=== PATIENT | male | born 1965 | race Caucasian/White ===

== ENCOUNTER 2016-03-28 21:17 | Inpatient (IN) | payer OTHER ==
[~2016-03-28] VITALS: Ht 198.1 cm; Wt 165.6 kg
[2016-03-28 21:20] VITALS: BP_SYST 126
[2016-03-28 22:06] LABS: BASOPHILS # (AUTO) 0.1 K/uL (0.0-0.2); EOSINOPHILS % (AUTO) 0.3 % (0.0-4.0); HEMATOCRIT 43.1 % (36-54); HEMOGLOBIN 14.5 g/dL (14.0-18.0); LYMPHOCYTES # (AUTO) 0.9 K/uL (1.0-5.5); LYMPHOCYTES % (AUTO) 5.9 % (20.5-51.5); MEAN CORPUSCULAR HEMOGLOBIN 29 pg (27-31); MEAN CORPUSCULAR HGB CONC 34 % (32-36); MEAN CORPUSCULAR VOLUME 87 fL (79.0-98.0); MONOCYTES # (AUTO) 0.6 K/uL (0.0-1.0); MONOCYTES % (AUTO) 4.1 % (1.7-9.3); NEUTROPHILS # (AUTO) 13.3 K/uL (1.8-7.7); NEUTROPHILS % (AUTO) 88.7 % (40.0-70.0); PLATELET COUNT (AUTO) 355 K/uL (130-430); RED BLOOD CELL COUNT(AUTO) 4.94 MIL/uL (4.2-6.2); RED CELL DISTRIBUTION WIDTH 11.5 % (9.0-15.0); WHITE BLOOD COUNT (AUTO) 14.9 K/uL (4.8-10.8)
[2016-03-28 22:18] LABS: CALCIUM 9.4 mg/dL (8.4-11.0); CREATININE 1.29 mg/dL (0.55-1.30); INR 1.2 (0.80-1.20); POTASSIUM 4.4 mmol/L (3.5-5.1); PROTHROMBIN TIME 12.5 SECS (9.5-12.5)
[2016-03-28 22:23] LABS: ALBUMIN 3.3 g/dL (3.4-4.8); TOTAL BILIRUBIN 1.5 mg/dL (0.0-1.0); TOTAL PROTEIN, SERUM 8.1 g/dL (6.4-8.3)
[2016-03-28] MEDS ORDERED: NACL 0.9% 1,000 ML IV ONE (22:23)
[2016-03-28] MEDS ORDERED: ONDANSETRON HCL 4 MG/2 ML VIAL IVP ONE (22:30)
[2016-03-28] MEDS ORDERED: IOHEXOL 100 ML IV ONE (23:09)
[2016-03-28] MEDS ORDERED: DIPHENHYDRAMINE INJ 50 MG/ML VIAL IVP ONE (23:45)
[2016-03-28] MEDS ORDERED: MORPHINE 4 MG/ML INJ. SYRINGE IVP ONE (23:45)
[2016-03-28 23:57] LABS: BILIRUBIN,URINE 2+ (NEGATIVE); BLOOD, URINE NEGATIVE (NEGATIVE); CLARITY/URINE SL HAZY (CLEAR); COLOR,URINE YELLOW (YELLOW); GLUCOSE,URINE NEGATIVE (NEGATIVE); KETONES,URINE 2+ (NEGATIVE); LEUKOCYTE ESTERASE ,URINE NEGATIVE (NEGATIVE); NITRITE, URINE POSITIVE (NEGATIVE); PH,URINE 5.5 (5.0-8.0); PROTEIN URINE 1+ (NEGATIVE)
[2016-03-29 00:13] LABS: BACTERIA,URINE MODERATE /HPF (None Seen); MUCUS,URINE 1+ /LPF (None Seen); RBC,URINE 0-3 /HPF (0-3)
[2016-03-29] MEDS ORDERED: MORPHINE 4 MG/ML INJ. SYRINGE IVP ONE ×2 (00:30)
[2016-03-29] MEDS ORDERED: NACL 0.9% 1,000 ML IV SCH (00:36)
[2016-03-29] MEDS ORDERED: PIPERACILLIN/TAZOBACTAM 3.375 GM/VIAL (ZOSYN) IV ONE (00:43)
[2016-03-29] MEDS ORDERED: MORPHINE 2 MG/ML INJ. SYRINGE IVP PRN (00:45)
[2016-03-29] MEDS ORDERED: ONDANSETRON HCL 4 MG/2 ML VIAL IVP PRN ×2 (00:45→03:30)
[2016-03-29] MEDS ORDERED: ACETAMINOPHEN 325 MG TABLET PO PRN (00:45)
[2016-03-29] MEDS ORDERED: HYDROcodone/ACETAMIN 5-325 MG TAB (NORCO/ VICODIN) PO PRN ×2 (00:45→04:30)
[2016-03-29] MEDS ORDERED: PIPERACILLIN/TAZO 3.375 GM in NS 50 ML IV ONE (00:45)
[2016-03-29] MEDS ORDERED: DIPHENHYDRAMINE INJ 50 MG/ML VIAL IVP ONE (01:00)
[2016-03-29] MEDS ORDERED: TYC3 PO (01:37)
[2016-03-29] MEDS ORDERED: LR 1,000 ML IV SCH (03:29)
[2016-03-29] MEDS ORDERED: HYDROmorphone 1 MG INJ. 1 MG/ML AMPUL IVP PRN ×2 (03:30)
[2016-03-29] MEDS ORDERED: HYDROmorphone 2 MG/ML VIAL IVP PRN (03:30)
[2016-03-29] MEDS ORDERED: POLYMYXIN 500,000/BACIT.10,000 UNITS in NS IRR 1 L IR ONE (03:44)
[2016-03-29 05:30] VITALS: BP_SYST 112
[2016-03-29 05:45] VITALS: BP_SYST 112
[2016-03-29] MEDS ORDERED: PIPERACILLIN/TAZO 3.375/DEX-IS 50 ML IV SCH (06:00)
[2016-03-29] MEDS ORDERED: AMPICILLIN SODIUM/SULBACTAM NA 3 GM in NS 100 ML IV SCH (06:00)
[2016-03-29] MEDS: D5/0.45 NS 1,000 ML IV SCH ×2 (06:10→17:01)
[2016-03-29 07:29] LABS: HEMATOCRIT 39.8 % (36-54); HEMOGLOBIN 13.5 g/dL (14.0-18.0)
[2016-03-29 08:00] VITALS: BP_SYST 138
[2016-03-29 08:12] LABS: CALCIUM 8.4 mg/dL (8.4-11.0); CREATININE 1.33 mg/dL (0.55-1.30); POTASSIUM 3.6 mmol/L (3.5-5.1)
[2016-03-29] MEDS ORDERED: AMPICILLIN SODIUM/SULBACTAM NA 3 GM in NS 100 ML IV ONE (08:15)
[2016-03-29] MEDS: FAMOTIDINE PF 20 MG/2 ML VIAL IVP SCH ×2 (08:47→20:04)
[2016-03-29] MEDS: ENOXAPARIN SODIUM 30 MG/0.3 ML SYRINGE SUBCUT SCH (08:47)
[2016-03-29 12:00] VITALS: BP_SYST 141
[2016-03-29] MEDS: HYDROmorphone 1 MG INJ. 1 MG/ML AMPUL IVP PRN ×3 (13:25→21:06)
[2016-03-29] MEDS: AMPICILLIN SODIUM/SULBACTAM NA 3 GM in NS 100 ML IV SCH ×3 (13:25→23:38)
[2016-03-29] MEDS ORDERED: NS 1000 ML BAG IV ONE (14:00)
[2016-03-29] MEDS ORDERED: METOCLOPRAMIDE HCL 10 MG/2 ML VIAL ONE (14:00)
[2016-03-29] MEDS ORDERED: KETOROLAC TROMETHAMINE 30 MG VIAL ONE (14:00)
[2016-03-29] MEDS ORDERED: ROCURONIUM BROMIDE 10 MG/ML (ZEMURON) ONE (14:00)
[2016-03-29] MEDS ORDERED: WATER FOR IRRIGATION,STERILE 1,000 ML IRRIG.SOLN IR ONE (14:00)
[2016-03-29] MEDS ORDERED: ONDANSETRON HCL 4 MG/2 ML VIAL ONE (14:00)
[2016-03-29] MEDS ORDERED: fentaNYL CITRATE 250 MCG/5 ML AMP ONE (14:00)
[2016-03-29] MEDS ORDERED: SEVOFLURANE 15 MIN GAS INH ONE (14:00)
[2016-03-29] MEDS ORDERED: PROPOFOL 200MG/ 20ML VIAL (DIPRIVAN) IV ONE (14:00)
[2016-03-29] MEDS ORDERED: MIDAZOLAM HCL 5 MG/5 ML VIAL ONE (14:00)
[2016-03-29] MEDS ORDERED: NS IRRIG SOLN 1000 ML IR ONE (14:00)
[2016-03-29] MEDS ORDERED: LR 1,000 ML IV.SOLN IV ONE (14:00)
[2016-03-29 16:00] VITALS: BP_SYST 119
[2016-03-29] MEDS: METOCLOPRAMIDE HCL 10 MG/2 ML VIAL IVP SCH ×2 (17:17→23:38)
[2016-03-29 20:00] VITALS: BP_SYST 130
[2016-03-30 01:11] VITALS: BP_SYST 119
[2016-03-30] MEDS: HYDROmorphone 1 MG INJ. 1 MG/ML AMPUL IVP PRN ×7 (01:22→23:23)
[2016-03-30] MEDS: D5/0.45 NS 1,000 ML IV SCH ×3 (05:03→20:18)
[2016-03-30 05:37] VITALS: BP_SYST 114
[2016-03-30] MEDS: AMPICILLIN SODIUM/SULBACTAM NA 3 GM in NS 100 ML IV SCH ×4 (06:23→23:24)
[2016-03-30] MEDS: METOCLOPRAMIDE HCL 10 MG/2 ML VIAL IVP SCH ×4 (06:23→23:24)
[2016-03-30 06:25] LABS: BASOPHILS % (AUTO) 0.1 % (0.0-2.0); HEMATOCRIT 35.9 % (36-54); HEMOGLOBIN 12.4 g/dL (14.0-18.0); LYMPHOCYTES # (AUTO) 0.8 K/uL (1.0-5.5); LYMPHOCYTES % (AUTO) 6.2 % (20.5-51.5); MEAN CORPUSCULAR HEMOGLOBIN 30 pg (27-31); MEAN CORPUSCULAR HGB CONC 35 % (32-36); MEAN CORPUSCULAR VOLUME 87 fL (79.0-98.0); MONOCYTES # (AUTO) 0.8 K/uL (0.0-1.0); MONOCYTES % (AUTO) 6.4 % (1.7-9.3); NEUTROPHILS # (AUTO) 10.6 K/uL (1.8-7.7); NEUTROPHILS % (AUTO) 87.3 % (40.0-70.0); PLATELET COUNT (AUTO) 275 K/uL (130-430); RED BLOOD CELL COUNT(AUTO) 4.15 MIL/uL (4.2-6.2); RED CELL DISTRIBUTION WIDTH 12.2 % (9.0-15.0); WHITE BLOOD COUNT (AUTO) 12.2 K/uL (4.8-10.8)
[2016-03-30 06:46] LABS: ALBUMIN 2.3 g/dL (3.4-4.8); CALCIUM 8.2 mg/dL (8.4-11.0); CREATININE 1.39 mg/dL (0.55-1.30); TOTAL BILIRUBIN 1.3 mg/dL (0.0-1.0); TOTAL PROTEIN, SERUM 6.6 g/dL (6.4-8.3)
[2016-03-30 08:00] VITALS: BP_SYST 119
[2016-03-30] MEDS: ENOXAPARIN SODIUM 30 MG/0.3 ML SYRINGE SUBCUT SCH (09:10)
[2016-03-30] MEDS: FAMOTIDINE PF 20 MG/2 ML VIAL IVP SCH ×2 (09:10→20:47)
[2016-03-30 11:23] VITALS: BP_SYST 124
[2016-03-30 15:24] VITALS: BP_SYST 151
[2016-03-30 19:45] VITALS: BP_SYST 101
[2016-03-31] VITALS: BP_SYST 129
[2016-03-31 04:00] VITALS: BP_SYST 118
[2016-03-31] MEDS: AMPICILLIN SODIUM/SULBACTAM NA 3 GM in NS 100 ML IV SCH ×4 (04:57→23:57)
[2016-03-31] MEDS: D5/0.45 NS 1,000 ML IV SCH ×2 (04:57→18:17)
[2016-03-31] MEDS: METOCLOPRAMIDE HCL 10 MG/2 ML VIAL IVP SCH ×4 (04:57→23:58)
[2016-03-31] MEDS: HYDROmorphone 1 MG INJ. 1 MG/ML AMPUL IVP PRN ×2 (06:45→15:49)
[2016-03-31 06:58] LABS: BASOPHILS % (AUTO) 0.1 % (0.0-2.0); EOSINOPHILS # (AUTO) 0.1 K/uL (0.0-0.4); EOSINOPHILS % (AUTO) 0.5 % (0.0-4.0); HEMATOCRIT 35.2 % (36-54); HEMOGLOBIN 12.1 g/dL (14.0-18.0); LYMPHOCYTES # (AUTO) 0.6 K/uL (1.0-5.5); MEAN CORPUSCULAR HEMOGLOBIN 30 pg (27-31); MEAN CORPUSCULAR HGB CONC 34 % (32-36); MEAN CORPUSCULAR VOLUME 88 fL (79.0-98.0); MONOCYTES # (AUTO) 0.7 K/uL (0.0-1.0); MONOCYTES % (AUTO) 4.7 % (1.7-9.3); NEUTROPHILS % (AUTO) 90.7 % (40.0-70.0); PLATELET COUNT (AUTO) 271 K/uL (130-430); WHITE BLOOD COUNT (AUTO) 14.4 K/uL (4.8-10.8)
[2016-03-31 07:09] LABS: ALBUMIN 2.1 g/dL (3.4-4.8); CALCIUM 8.1 mg/dL (8.4-11.0); CREATININE 1.44 mg/dL (0.55-1.30); POTASSIUM 3.6 mmol/L (3.5-5.1); TOTAL BILIRUBIN 1.4 mg/dL (0.0-1.0); TOTAL PROTEIN, SERUM 6.4 g/dL (6.4-8.3)
[2016-03-31 08:28] VITALS: BP_SYST 116
[2016-03-31] MEDS: ENOXAPARIN SODIUM 30 MG/0.3 ML SYRINGE SUBCUT SCH (10:22)
[2016-03-31] MEDS: FAMOTIDINE PF 20 MG/2 ML VIAL IVP SCH ×2 (10:59→21:02)
[2016-03-31] MEDS: metroNIDAZOLE 500 mg/NS 100 ML IV SCH ×2 (15:48→21:02)
[2016-03-31 16:15] VITALS: BP_SYST 140
[2016-03-31] MEDS: HYDROcodone/ACETAMIN 5-325 MG TAB (NORCO/ VICODIN) PO PRN (18:15)
[2016-03-31 19:50] VITALS: BP_SYST 113
[2016-03-31 23:44] VITALS: BP_SYST 106
[2016-04-01 03:59] VITALS: BP_SYST 118
[2016-04-01] MEDS: METOCLOPRAMIDE HCL 10 MG/2 ML VIAL IVP SCH ×3 (05:31→18:15)
[2016-04-01] MEDS: metroNIDAZOLE 500 mg/NS 100 ML IV SCH ×3 (05:33→21:11)
[2016-04-01] MEDS: AMPICILLIN SODIUM/SULBACTAM NA 3 GM in NS 100 ML IV SCH ×3 (05:33→17:58)
[2016-04-01] MEDS: HYDROcodone/ACETAMIN 5-325 MG TAB (NORCO/ VICODIN) PO PRN ×4 (05:33→23:21)
[2016-04-01] MEDS: D5/0.45 NS 1,000 ML IV SCH ×3 (05:34→22:18)
[2016-04-01 06:39] LABS: CALCIUM 8.3 mg/dL (8.4-11.0); CREATININE 1.21 mg/dL (0.55-1.30); POTASSIUM 3.2 mmol/L (3.5-5.1); TOTAL BILIRUBIN 1.2 mg/dL (0.0-1.0); TOTAL PROTEIN, SERUM 6.4 g/dL (6.4-8.3)
[2016-04-01 07:34] LABS: BASOPHILS % (AUTO) 0.2 % (0.0-2.0); EOSINOPHILS # (AUTO) 0.2 K/uL (0.0-0.4); EOSINOPHILS % (AUTO) 1.7 % (0.0-4.0); HEMATOCRIT 33.6 % (36-54); HEMOGLOBIN 11.4 g/dL (14.0-18.0); LYMPHOCYTES # (AUTO) 0.6 K/uL (1.0-5.5); LYMPHOCYTES % (AUTO) 5.6 % (20.5-51.5); MEAN CORPUSCULAR HEMOGLOBIN 30 pg (27-31); MEAN CORPUSCULAR HGB CONC 34 % (32-36); MEAN CORPUSCULAR VOLUME 88 fL (79.0-98.0); MONOCYTES # (AUTO) 0.6 K/uL (0.0-1.0); MONOCYTES % (AUTO) 5.4 % (1.7-9.3); NEUTROPHILS # (AUTO) 9.7 K/uL (1.8-7.7); NEUTROPHILS % (AUTO) 87.1 % (40.0-70.0); RED BLOOD CELL COUNT(AUTO) 3.81 MIL/uL (4.2-6.2); RED CELL DISTRIBUTION WIDTH 11.9 % (9.0-15.0); WHITE BLOOD COUNT (AUTO) 11.1 K/uL (4.8-10.8)
[2016-04-01 07:39] LABS: PLATELET COUNT (AUTO) 289 K/uL (130-430)
[2016-04-01 08:00] VITALS: BP_SYST 111
[2016-04-01] MEDS: ENOXAPARIN SODIUM 30 MG/0.3 ML SYRINGE SUBCUT SCH (10:21)
[2016-04-01] MEDS: FAMOTIDINE PF 20 MG/2 ML VIAL IVP SCH ×2 (10:21→21:29)
[2016-04-01] MEDS ORDERED: POTASSIUM CHLORIDE 40 MEQ, MAGNESIUM SULFATE 2 GM in 0.45% NS 250 ML IV ONE (10:30)
[2016-04-01] MEDS ORDERED: POTASSIUM CHLORIDE 40 MEQ, MAGNESIUM SULFATE 2 GM in NS 250 ML IV ONE (10:45)
[2016-04-01 11:09] VITALS: BP_SYST 124
[2016-04-01 17:24] VITALS: BP_SYST 123
[2016-04-01] MEDS: ONDANSETRON HCL 4 MG/2 ML VIAL IVP PRN (18:15)
[2016-04-01 20:06] VITALS: BP_SYST 127
[2016-04-02 00:54] VITALS: BP_SYST 124
[2016-04-02] MEDS: AMPICILLIN SODIUM/SULBACTAM NA 3 GM in NS 100 ML IV SCH ×4 (01:02→18:11)
[2016-04-02] MEDS: METOCLOPRAMIDE HCL 10 MG/2 ML VIAL IVP SCH ×4 (01:14→18:11)
[2016-04-02] MEDS: ONDANSETRON HCL 4 MG/2 ML VIAL IVP PRN ×3 (02:35→12:31)
[2016-04-02 04:30] VITALS: BP_SYST 118
[2016-04-02] MEDS: metroNIDAZOLE 500 mg/NS 100 ML IV SCH ×3 (05:11→22:28)
[2016-04-02 07:00] LABS: BASOPHILS % (AUTO) 0.1 % (0.0-2.0); EOSINOPHILS # (AUTO) 0.1 K/uL (0.0-0.4); EOSINOPHILS % (AUTO) 1.3 % (0.0-4.0); HEMOGLOBIN 11.1 g/dL (14.0-18.0); LYMPHOCYTES # (AUTO) 0.4 K/uL (1.0-5.5); LYMPHOCYTES % (AUTO) 3.8 % (20.5-51.5); MEAN CORPUSCULAR HEMOGLOBIN 31 pg (27-31); MEAN CORPUSCULAR HGB CONC 35 % (32-36); MEAN CORPUSCULAR VOLUME 88 fL (79.0-98.0); MONOCYTES # (AUTO) 0.7 K/uL (0.0-1.0); MONOCYTES % (AUTO) 5.9 % (1.7-9.3); NEUTROPHILS # (AUTO) 10.2 K/uL (1.8-7.7); NEUTROPHILS % (AUTO) 88.9 % (40.0-70.0); PLATELET COUNT (AUTO) 304 K/uL (130-430); RED BLOOD CELL COUNT(AUTO) 3.62 MIL/uL (4.2-6.2); RED CELL DISTRIBUTION WIDTH 12.1 % (9.0-15.0); WHITE BLOOD COUNT (AUTO) 11.4 K/uL (4.8-10.8)
[2016-04-02 07:29] LABS: CALCIUM 8.6 mg/dL (8.4-11.0); CREATININE 1.11 mg/dL (0.55-1.30); POTASSIUM 3.6 mmol/L (3.5-5.1); TOTAL BILIRUBIN 0.8 mg/dL (0.0-1.0); TOTAL PROTEIN, SERUM 6.3 g/dL (6.4-8.3)
[2016-04-02 08:00] VITALS: BP_SYST 123
[2016-04-02] MEDS: D5/0.45 NS 1,000 ML IV SCH (08:18)
[2016-04-02] MEDS: FAMOTIDINE PF 20 MG/2 ML VIAL IVP SCH ×2 (08:54→22:27)
[2016-04-02] MEDS: ENOXAPARIN SODIUM 30 MG/0.3 ML SYRINGE SUBCUT SCH (08:54)
[2016-04-02] MEDS: HYDROcodone/ACETAMIN 5-325 MG TAB (NORCO/ VICODIN) PO PRN (09:16)
[2016-04-02 12:00] VITALS: BP_SYST 136
[2016-04-02 16:00] VITALS: BP_SYST 118; BP_SYST 122
[2016-04-02 20:00] VITALS: BP_SYST 114
[2016-04-02] MEDS: HYDROmorphone 1 MG INJ. 1 MG/ML AMPUL IVP PRN (20:33)
[2016-04-03] VITALS (7 sets, daily range): BP systolic 109–138
[2016-04-03] MEDS: AMPICILLIN SODIUM/SULBACTAM NA 3 GM in NS 100 ML IV SCH ×5 (00:06→23:07)
[2016-04-03] MEDS: METOCLOPRAMIDE HCL 10 MG/2 ML VIAL IVP SCH ×5 (00:07→23:07)
[2016-04-03] MEDS: HYDROmorphone 1 MG INJ. 1 MG/ML AMPUL IVP PRN ×7 (00:08→19:43)
[2016-04-03] MEDS: D5/0.45 NS 1,000 ML IV SCH ×2 (05:40→15:45)
[2016-04-03] MEDS: metroNIDAZOLE 500 mg/NS 100 ML IV SCH ×3 (06:43→21:03)
[2016-04-03 06:48] LABS: BASOPHILS % (AUTO) 0.1 % (0.0-2.0); HEMATOCRIT 41.9 % (36-54); LYMPHOCYTES # (AUTO) 0.6 K/uL (1.0-5.5); LYMPHOCYTES % (AUTO) 3.1 % (20.5-51.5); MEAN CORPUSCULAR HEMOGLOBIN 29 pg (27-31); MEAN CORPUSCULAR HGB CONC 33 % (32-36); MEAN CORPUSCULAR VOLUME 88 fL (79.0-98.0); MONOCYTES # (AUTO) 0.8 K/uL (0.0-1.0); MONOCYTES % (AUTO) 4.3 % (1.7-9.3); NEUTROPHILS # (AUTO) 16.5 K/uL (1.8-7.7); NEUTROPHILS % (AUTO) 92.5 % (40.0-70.0); PLATELET COUNT (AUTO) 527 K/uL (130-430); RED BLOOD CELL COUNT(AUTO) 4.76 MIL/uL (4.2-6.2); RED CELL DISTRIBUTION WIDTH 12.3 % (9.0-15.0)
[2016-04-03 07:02] LABS: WHITE BLOOD COUNT (AUTO) 17.9 K/uL (4.8-10.8)
[2016-04-03 08:32] LABS: ALBUMIN 1.9 g/dL (3.4-4.8); CALCIUM 8.6 mg/dL (8.4-11.0); CREATININE 2.53 mg/dL (0.55-1.30); TOTAL BILIRUBIN 2.2 mg/dL (0.0-1.0); TOTAL PROTEIN, SERUM 6.5 g/dL (6.4-8.3)
[2016-04-03] MEDS: FAMOTIDINE PF 20 MG/2 ML VIAL IVP SCH ×2 (08:51→21:03)
[2016-04-03] MEDS: ENOXAPARIN SODIUM 30 MG/0.3 ML SYRINGE SUBCUT SCH (08:51)
[2016-04-03 11:45] LABS: INR 1.3 (0.80-1.20); PROTHROMBIN TIME 13.9 SECS (9.5-12.5)
[2016-04-03] MEDS ORDERED: COMMUNICATION ORDER XX ONE ×2 (17:00→17:15)
[2016-04-03] MEDS ORDERED: LR 1,000 ML IV ONE (17:15)
[2016-04-04] VITALS: BP_SYST 133
[2016-04-04] MEDS: HYDROmorphone 1 MG INJ. 1 MG/ML AMPUL IVP PRN ×6 (00:13→21:11)
[2016-04-04] MEDS: ONDANSETRON HCL 4 MG/2 ML VIAL IVP PRN ×2 (02:54→08:13)
[2016-04-04] MEDS: D5/0.45 NS 1,000 ML IV SCH ×2 (04:13→21:11)
[2016-04-04 04:22] VITALS: BP_SYST 126
[2016-04-04] MEDS: metroNIDAZOLE 500 mg/NS 100 ML IV SCH ×3 (05:06→21:11)
[2016-04-04] MEDS: METOCLOPRAMIDE HCL 10 MG/2 ML VIAL IVP SCH ×4 (05:06→23:25)
[2016-04-04] MEDS: AMPICILLIN SODIUM/SULBACTAM NA 3 GM in NS 100 ML IV SCH ×4 (05:06→23:25)
[2016-04-04 06:42] LABS: BASOPHILS # (AUTO) 0.1 K/uL (0.0-0.2); BASOPHILS % (AUTO) 0.5 % (0.0-2.0); HEMATOCRIT 33.7 % (36-54); HEMOGLOBIN 11.6 g/dL (14.0-18.0); LYMPHOCYTES # (AUTO) 0.4 K/uL (1.0-5.5); LYMPHOCYTES % (AUTO) 2.4 % (20.5-51.5); MEAN CORPUSCULAR HEMOGLOBIN 30 pg (27-31); MEAN CORPUSCULAR HGB CONC 34 % (32-36); MEAN CORPUSCULAR VOLUME 88 fL (79.0-98.0); MONOCYTES # (AUTO) 0.7 K/uL (0.0-1.0); MONOCYTES % (AUTO) 4.1 % (1.7-9.3); NEUTROPHILS # (AUTO) 14.7 K/uL (1.8-7.7); PLATELET COUNT (AUTO) 358 K/uL (130-430); RED BLOOD CELL COUNT(AUTO) 3.84 MIL/uL (4.2-6.2); RED CELL DISTRIBUTION WIDTH 12.4 % (9.0-15.0); WHITE BLOOD COUNT (AUTO) 15.9 K/uL (4.8-10.8)
[2016-04-04 06:58] LABS: ALBUMIN 1.7 g/dL (3.4-4.8); CALCIUM 8.3 mg/dL (8.4-11.0); CREATININE 2.58 mg/dL (0.55-1.30)
[2016-04-04] MEDS: FAMOTIDINE PF 20 MG/2 ML VIAL IVP SCH ×2 (08:14→21:11)
[2016-04-04] MEDS: ENOXAPARIN SODIUM 30 MG/0.3 ML SYRINGE SUBCUT SCH (08:14)
[2016-04-04] MEDS ORDERED: *TPN PER PHARMACY XX PRN (09:45)
[2016-04-04 10:49] LABS: PHOSPHORUS 4.2 mg/dL (2.7-4.5)
[2016-04-04] MEDS ORDERED: LR 1,000 ML IV ONE (11:00)
[2016-04-04 12:00] VITALS: BP_SYST 130
[2016-04-04] MEDS ORDERED: TPN CENTRAL IV SCH ×11 (15:30)
[2016-04-04] MEDS ORDERED: [UNRECOGNIZED DRUG - OTHER] IV SCH ×11 (15:30)
[2016-04-04] MEDS ORDERED: SODIUM ACETATE IV SCH ×11 (15:30)
[2016-04-04] MEDS ORDERED: POTASSIUM CHLORIDE IV SCH ×11 (15:30)
[2016-04-04] MEDS ORDERED: K PHOS IV SCH ×11 (15:30)
[2016-04-04 16:00] VITALS: BP_SYST 128
[2016-04-04] MEDS: FAT EMULSIONS 250 ML IV SCH (16:12)
[2016-04-04 20:00] VITALS: BP_SYST 132
[2016-04-04] MEDS: TEMAZEPAM 15 MG CAPSULE PO PRN (23:25)
[2016-04-05 01:13] VITALS: BP_SYST 153
[2016-04-05] MEDS: HYDROmorphone 1 MG INJ. 1 MG/ML AMPUL IVP PRN ×4 (03:34→20:03)
[2016-04-05 04:57] VITALS: BP_SYST 146
[2016-04-05] MEDS: D5/0.45 NS 1,000 ML IV SCH ×2 (06:00→20:03)
[2016-04-05] MEDS: METOCLOPRAMIDE HCL 10 MG/2 ML VIAL IVP SCH ×4 (06:00→23:15)
[2016-04-05] MEDS: metroNIDAZOLE 500 mg/NS 100 ML IV SCH ×3 (06:03→23:15)
[2016-04-05 06:32] LABS: LYMPHOCYTES # (AUTO) 0.4 K/uL (1.0-5.5); MONOCYTES # (AUTO) 0.6 K/uL (0.0-1.0)
[2016-04-05 06:39] LABS: ALBUMIN 1.6 g/dL (3.4-4.8); CALCIUM 8.1 mg/dL (8.4-11.0); CREATININE 1.52 mg/dL (0.55-1.30); POTASSIUM 3.5 mmol/L (3.5-5.1); TOTAL BILIRUBIN 0.7 mg/dL (0.0-1.0); TOTAL PROTEIN, SERUM 5.9 g/dL (6.4-8.3)
[2016-04-05 06:47] LABS: BASOPHILS # (AUTO) 0.1 K/uL (0.0-0.2); BASOPHILS % (AUTO) 0.6 % (0.0-2.0); EOSINOPHILS % (AUTO) 0.3 % (0.0-4.0); HEMATOCRIT 30.9 % (36-54); HEMOGLOBIN 10.4 g/dL (14.0-18.0); LYMPHOCYTES % (AUTO) 2.9 % (20.5-51.5); MEAN CORPUSCULAR HEMOGLOBIN 30 pg (27-31); MEAN CORPUSCULAR HGB CONC 34 % (32-36); MEAN CORPUSCULAR VOLUME 88 fL (79.0-98.0); MONOCYTES % (AUTO) 4.8 % (1.7-9.3); NEUTROPHILS # (AUTO) 11.2 K/uL (1.8-7.7); NEUTROPHILS % (AUTO) 91.4 % (40.0-70.0); PLATELET COUNT (AUTO) 314 K/uL (130-430); RED CELL DISTRIBUTION WIDTH 12.4 % (9.0-15.0); WHITE BLOOD COUNT (AUTO) 12.3 K/uL (4.8-10.8)
[2016-04-05 08:31] VITALS: BP_SYST 144
[2016-04-05] MEDS: ENOXAPARIN SODIUM 30 MG/0.3 ML SYRINGE SUBCUT SCH (09:17)
[2016-04-05] MEDS: FAMOTIDINE PF 20 MG/2 ML VIAL IVP SCH ×2 (09:17→20:02)
[2016-04-05 12:51] VITALS: BP_SYST 142
[2016-04-05] MEDS: SODIUM ACETATE IV SCH ×11 (13:51)
[2016-04-05] MEDS: POTASSIUM CHLORIDE IV SCH ×11 (13:51)
[2016-04-05] MEDS: TPN CENTRAL IV SCH ×11 (13:51)
[2016-04-05] MEDS: [UNRECOGNIZED DRUG - OTHER] IV SCH ×11 (13:51)
[2016-04-05] MEDS: K PHOS IV SCH ×11 (13:51)
[2016-04-05] MEDS: FAT EMULSIONS 250 ML IV SCH (18:02)
[2016-04-05 18:29] VITALS: BP_SYST 133
[2016-04-05 19:40] VITALS: BP_SYST 135
[2016-04-05] MEDS: ONDANSETRON HCL 4 MG/2 ML VIAL IVP PRN (20:02)
[2016-04-06] VITALS (8 sets, daily range): BP systolic 133–153
[2016-04-06] MEDS: HYDROmorphone 1 MG INJ. 1 MG/ML AMPUL IVP PRN ×5 (02:38→21:28)
[2016-04-06] MEDS: metroNIDAZOLE 500 mg/NS 100 ML IV SCH ×3 (05:17→21:28)
[2016-04-06] MEDS: METOCLOPRAMIDE HCL 10 MG/2 ML VIAL IVP SCH ×3 (05:17→18:42)
[2016-04-06] MEDS: D5/0.45 NS 1,000 ML IV SCH ×3 (05:20→22:18)
[2016-04-06] MEDS: TPN CENTRAL IV SCH ×22 (05:26→10:34)
[2016-04-06] MEDS: SODIUM ACETATE IV SCH ×22 (05:26→10:34)
[2016-04-06] MEDS: K PHOS IV SCH ×22 (05:26→10:34)
[2016-04-06] MEDS: POTASSIUM CHLORIDE IV SCH ×22 (05:26→10:34)
[2016-04-06] MEDS: [UNRECOGNIZED DRUG - OTHER] IV SCH ×22 (05:26→10:34)
[2016-04-06 06:39] LABS: BASOPHILS % (AUTO) 0.2 % (0.0-2.0); EOSINOPHILS # (AUTO) 0.1 K/uL (0.0-0.4); EOSINOPHILS % (AUTO) 1.1 % (0.0-4.0); HEMATOCRIT 31.6 % (36-54); HEMOGLOBIN 10.5 g/dL (14.0-18.0); LYMPHOCYTES # (AUTO) 0.5 K/uL (1.0-5.5); LYMPHOCYTES % (AUTO) 4.4 % (20.5-51.5); MEAN CORPUSCULAR HEMOGLOBIN 30 pg (27-31); MEAN CORPUSCULAR HGB CONC 33 % (32-36); MEAN CORPUSCULAR VOLUME 89 fL (79.0-98.0); MONOCYTES # (AUTO) 0.6 K/uL (0.0-1.0); MONOCYTES % (AUTO) 5.1 % (1.7-9.3); NEUTROPHILS # (AUTO) 10.3 K/uL (1.8-7.7); NEUTROPHILS % (AUTO) 89.2 % (40.0-70.0); PLATELET COUNT (AUTO) 295 K/uL (130-430); RED BLOOD CELL COUNT(AUTO) 3.57 MIL/uL (4.2-6.2); RED CELL DISTRIBUTION WIDTH 12.3 % (9.0-15.0); WHITE BLOOD COUNT (AUTO) 11.5 K/uL (4.8-10.8)
[2016-04-06 06:50] LABS: CALCIUM 8.1 mg/dL (8.4-11.0); CREATININE 1.17 mg/dL (0.55-1.30); PHOSPHORUS 2.8 mg/dL (2.7-4.5); POTASSIUM 3.5 mmol/L (3.5-5.1)
[2016-04-06] MEDS: ENOXAPARIN SODIUM 30 MG/0.3 ML SYRINGE SUBCUT SCH (08:27)
[2016-04-06] MEDS: FAMOTIDINE PF 20 MG/2 ML VIAL IVP SCH ×2 (08:27→21:28)
[2016-04-06] MEDS: FAT EMULSIONS 250 ML IV SCH (18:24)
[2016-04-06] MEDS: ONDANSETRON HCL 4 MG/2 ML VIAL IVP PRN (18:36)
[2016-04-06] MEDS ORDERED: SODIUM ACETATE IV SCH ×11 (23:00)
[2016-04-06] MEDS ORDERED: [UNRECOGNIZED DRUG - OTHER] IV SCH ×11 (23:00)
[2016-04-06] MEDS ORDERED: SODIUM CHLORIDE IV SCH ×11 (23:00)
[2016-04-06] MEDS ORDERED: TPN CENTRAL IV SCH ×11 (23:00)
[2016-04-07] MEDS: METOCLOPRAMIDE HCL 10 MG/2 ML VIAL IVP SCH ×3 (00:05→12:41)
[2016-04-07 00:40] VITALS: BP_SYST 142
[2016-04-07] MEDS: HYDROmorphone 1 MG INJ. 1 MG/ML AMPUL IVP PRN ×4 (04:00→20:01)
[2016-04-07] MEDS: ONDANSETRON HCL 4 MG/2 ML VIAL IVP PRN ×4 (04:10→20:08)
[2016-04-07 04:33] VITALS: BP_SYST 131
[2016-04-07] MEDS: D5/0.45 NS 1,000 ML IV SCH (06:31)
[2016-04-07 07:24] LABS: BASOPHILS # (AUTO) 0.1 K/uL (0.0-0.2); BASOPHILS % (AUTO) 0.4 % (0.0-2.0); EOSINOPHILS # (AUTO) 0.1 K/uL (0.0-0.4); EOSINOPHILS % (AUTO) 0.9 % (0.0-4.0); HEMATOCRIT 30.6 % (36-54); HEMOGLOBIN 10.5 g/dL (14.0-18.0); LYMPHOCYTES # (AUTO) 0.6 K/uL (1.0-5.5); MEAN CORPUSCULAR HEMOGLOBIN 30 pg (27-31); MEAN CORPUSCULAR HGB CONC 34 % (32-36); MEAN CORPUSCULAR VOLUME 88 fL (79.0-98.0); MONOCYTES # (AUTO) 0.9 K/uL (0.0-1.0); NEUTROPHILS # (AUTO) 12.7 K/uL (1.8-7.7); NEUTROPHILS % (AUTO) 88.7 % (40.0-70.0); PLATELET COUNT (AUTO) 303 K/uL (130-430); RED CELL DISTRIBUTION WIDTH 12.4 % (9.0-15.0); WHITE BLOOD COUNT (AUTO) 14.4 K/uL (4.8-10.8)
[2016-04-07 07:39] LABS: ALBUMIN 1.6 g/dL (3.4-4.8); CALCIUM 7.7 mg/dL (8.4-11.0); CREATININE 0.95 mg/dL (0.55-1.30); POTASSIUM 3.5 mmol/L (3.5-5.1); TOTAL BILIRUBIN 0.6 mg/dL (0.0-1.0); TOTAL PROTEIN, SERUM 5.7 g/dL (6.4-8.3)
[2016-04-07] MEDS: ENOXAPARIN SODIUM 30 MG/0.3 ML SYRINGE SUBCUT SCH (09:37)
[2016-04-07] MEDS: FAMOTIDINE PF 20 MG/2 ML VIAL IVP SCH ×2 (09:38→21:23)
[2016-04-07 10:00] VITALS: BP_SYST 140
[2016-04-07 11:26] VITALS: BP_SYST 132
[2016-04-07] MEDS: FAT EMULSIONS 250 ML IV SCH (15:26)
[2016-04-07] MEDS: [UNRECOGNIZED DRUG - OTHER] IV SCH ×11 (15:29)
[2016-04-07] MEDS: TPN CENTRAL IV SCH ×11 (15:29)
[2016-04-07] MEDS: SODIUM ACETATE IV SCH ×11 (15:29)
[2016-04-07] MEDS: SODIUM CHLORIDE IV SCH ×11 (15:29)
[2016-04-07 15:38] VITALS: BP_SYST 151
[2016-04-07] MEDS ORDERED: metroNIDAZOLE 500 mg/NS 100 ML IV ONE (22:00)
[2016-04-08] VITALS: BP_SYST 118
[2016-04-08] MEDS: METOCLOPRAMIDE HCL 10 MG/2 ML VIAL IVP SCH ×4 (00:29→18:51)
[2016-04-08] MEDS: HYDROmorphone 1 MG INJ. 1 MG/ML AMPUL IVP PRN ×5 (00:31→19:56)
[2016-04-08 04:00] VITALS: BP_SYST 144
[2016-04-08] MEDS: D5/0.45 NS 1,000 ML IV SCH ×3 (04:18→16:53)
[2016-04-08] MEDS: TPN CENTRAL IV SCH ×22 (06:48→18:54)
[2016-04-08] MEDS: SODIUM CHLORIDE IV SCH ×22 (06:48→18:54)
[2016-04-08] MEDS: SODIUM ACETATE IV SCH ×22 (06:48→18:54)
[2016-04-08] MEDS: [UNRECOGNIZED DRUG - OTHER] IV SCH ×22 (06:48→18:54)
[2016-04-08 06:55] LABS: ALBUMIN 1.4 g/dL (3.4-4.8); BASOPHILS # (AUTO) 0.1 K/uL (0.0-0.2); BASOPHILS % (AUTO) 0.7 % (0.0-2.0); CALCIUM 7.6 mg/dL (8.4-11.0); CREATININE 0.93 mg/dL (0.55-1.30); EOSINOPHILS # (AUTO) 0.2 K/uL (0.0-0.4); EOSINOPHILS % (AUTO) 1.6 % (0.0-4.0); HEMATOCRIT 27.9 % (36-54); HEMOGLOBIN 9.7 g/dL (14.0-18.0); LYMPHOCYTES # (AUTO) 0.7 K/uL (1.0-5.5); LYMPHOCYTES % (AUTO) 5.1 % (20.5-51.5); MEAN CORPUSCULAR HEMOGLOBIN 30 pg (27-31); MEAN CORPUSCULAR HGB CONC 35 % (32-36); MEAN CORPUSCULAR VOLUME 86 fL (79.0-98.0); MONOCYTES # (AUTO) 0.8 K/uL (0.0-1.0); MONOCYTES % (AUTO) 5.6 % (1.7-9.3); NEUTROPHILS # (AUTO) 12.4 K/uL (1.8-7.7); PHOSPHORUS 2.7 mg/dL (2.7-4.5); PLATELET COUNT (AUTO) 263 K/uL (130-430); POTASSIUM 3.2 mmol/L (3.5-5.1); RED BLOOD CELL COUNT(AUTO) 3.23 MIL/uL (4.2-6.2); RED CELL DISTRIBUTION WIDTH 11.9 % (9.0-15.0); TOTAL BILIRUBIN 0.5 mg/dL (0.0-1.0); TOTAL PROTEIN, SERUM 5.2 g/dL (6.4-8.3); WHITE BLOOD COUNT (AUTO) 14.3 K/uL (4.8-10.8)
[2016-04-08 08:00] VITALS: BP_SYST 126
[2016-04-08] MEDS ORDERED: KCL 20 mEq in 100 mL (PREMIX) 100 ML IV ONE (08:15)
[2016-04-08] MEDS ORDERED: metroNIDAZOLE 500 mg/NS 100 ML IV ONE (08:30)
[2016-04-08] MEDS: ENOXAPARIN SODIUM 30 MG/0.3 ML SYRINGE SUBCUT SCH (09:51)
[2016-04-08] MEDS: FAMOTIDINE PF 20 MG/2 ML VIAL IVP SCH ×2 (09:52→21:41)
[2016-04-08] MEDS: ONDANSETRON HCL 4 MG/2 ML VIAL IVP PRN ×3 (09:57→19:54)
[2016-04-08 13:04] VITALS: BP_SYST 119
[2016-04-08] MEDS: metroNIDAZOLE 500 mg/NS 100 ML IV SCH ×2 (14:58→21:40)
[2016-04-08 16:35] VITALS: BP_SYST 140
[2016-04-08] MEDS: FAT EMULSIONS 250 ML IV SCH (16:59)
[2016-04-09 00:56] VITALS: BP_SYST 129
[2016-04-09] MEDS: METOCLOPRAMIDE HCL 10 MG/2 ML VIAL IVP SCH ×5 (01:16→23:12)
[2016-04-09 04:00] VITALS: BP_SYST 139
[2016-04-09] MEDS: D5/0.45 NS 1,000 ML IV SCH ×3 (04:49→17:20)
[2016-04-09] MEDS: metroNIDAZOLE 500 mg/NS 100 ML IV SCH ×3 (05:25→22:57)
[2016-04-09] MEDS: HYDROmorphone 1 MG INJ. 1 MG/ML AMPUL IVP PRN ×7 (05:36→20:49)
[2016-04-09] MEDS: ONDANSETRON HCL 4 MG/2 ML VIAL IVP PRN ×3 (05:37→17:17)
[2016-04-09 06:44] LABS: BASOPHILS % (AUTO) 0.2 % (0.0-2.0); EOSINOPHILS # (AUTO) 0.2 K/uL (0.0-0.4); EOSINOPHILS % (AUTO) 1.4 % (0.0-4.0); HEMATOCRIT 28.8 % (36-54); HEMOGLOBIN 9.8 g/dL (14.0-18.0); LYMPHOCYTES # (AUTO) 0.6 K/uL (1.0-5.5); LYMPHOCYTES % (AUTO) 5.2 % (20.5-51.5); MEAN CORPUSCULAR HEMOGLOBIN 30 pg (27-31); MEAN CORPUSCULAR HGB CONC 34 % (32-36); MEAN CORPUSCULAR VOLUME 87 fL (79.0-98.0); MONOCYTES # (AUTO) 0.7 K/uL (0.0-1.0); MONOCYTES % (AUTO) 6.1 % (1.7-9.3); NEUTROPHILS # (AUTO) 10.3 K/uL (1.8-7.7); NEUTROPHILS % (AUTO) 87.1 % (40.0-70.0); PLATELET COUNT (AUTO) 290 K/uL (130-430); RED BLOOD CELL COUNT(AUTO) 3.31 MIL/uL (4.2-6.2); RED CELL DISTRIBUTION WIDTH 12.1 % (9.0-15.0); WHITE BLOOD COUNT (AUTO) 11.8 K/uL (4.8-10.8)
[2016-04-09] MEDS: [UNRECOGNIZED DRUG - OTHER] IV SCH ×22 (06:53→10:24)
[2016-04-09] MEDS: SODIUM CHLORIDE IV SCH ×33 (06:53→23:32)
[2016-04-09] MEDS: TPN CENTRAL IV SCH ×33 (06:53→23:32)
[2016-04-09] MEDS: SODIUM ACETATE IV SCH ×33 (06:53→23:32)
[2016-04-09 07:05] LABS: ALBUMIN 1.4 g/dL (3.4-4.8); CALCIUM 7.6 mg/dL (8.4-11.0); CREATININE 0.92 mg/dL (0.55-1.30); POTASSIUM 3.2 mmol/L (3.5-5.1); TOTAL BILIRUBIN 0.4 mg/dL (0.0-1.0); TOTAL PROTEIN, SERUM 5.5 g/dL (6.4-8.3)
[2016-04-09 08:02] VITALS: BP_SYST 132
[2016-04-09] MEDS: FAMOTIDINE PF 20 MG/2 ML VIAL IVP SCH ×2 (08:24→20:46)
[2016-04-09] MEDS: ENOXAPARIN SODIUM 30 MG/0.3 ML SYRINGE SUBCUT SCH (08:24)
[2016-04-09 12:05] VITALS: BP_SYST 137
[2016-04-09] MEDS ORDERED: DIATR MEGLU/DIATRIZ SOD 30 ML SOLUTION PO ONE ×2 (14:31→15:20)
[2016-04-09 16:10] VITALS: BP_SYST 136
[2016-04-09] MEDS: FAT EMULSIONS 250 ML IV SCH (17:19)
[2016-04-09 20:21] VITALS: BP_SYST 140
[2016-04-09] MEDS: [UNRECOGNIZED DRUG - OTHER] IV SCH ×11 (23:32)
[2016-04-10] VITALS: BP_SYST 122
[2016-04-10] MEDS: HYDROmorphone 1 MG INJ. 1 MG/ML AMPUL IVP PRN ×7 (01:22→20:55)
[2016-04-10 04:27] VITALS: BP_SYST 126
[2016-04-10] MEDS: METOCLOPRAMIDE HCL 10 MG/2 ML VIAL IVP SCH ×3 (05:09→17:32)
[2016-04-10] MEDS: metroNIDAZOLE 500 mg/NS 100 ML IV SCH ×3 (05:09→22:48)
[2016-04-10] MEDS: D5/0.45 NS 1,000 ML IV SCH ×2 (05:11→08:20)
[2016-04-10 06:48] LABS: BASOPHILS % (AUTO) 0.2 % (0.0-2.0); EOSINOPHILS # (AUTO) 0.2 K/uL (0.0-0.4); EOSINOPHILS % (AUTO) 1.8 % (0.0-4.0); HEMATOCRIT 27.9 % (36-54); HEMOGLOBIN 9.5 g/dL (14.0-18.0); LYMPHOCYTES # (AUTO) 0.7 K/uL (1.0-5.5); LYMPHOCYTES % (AUTO) 5.8 % (20.5-51.5); MEAN CORPUSCULAR HEMOGLOBIN 30 pg (27-31); MEAN CORPUSCULAR HGB CONC 34 % (32-36); MEAN CORPUSCULAR VOLUME 87 fL (79.0-98.0); MONOCYTES # (AUTO) 0.7 K/uL (0.0-1.0); MONOCYTES % (AUTO) 6.5 % (1.7-9.3); NEUTROPHILS # (AUTO) 9.9 K/uL (1.8-7.7); NEUTROPHILS % (AUTO) 85.7 % (40.0-70.0); PLATELET COUNT (AUTO) 316 K/uL (130-430); RED BLOOD CELL COUNT(AUTO) 3.21 MIL/uL (4.2-6.2); RED CELL DISTRIBUTION WIDTH 12.2 % (9.0-15.0); WHITE BLOOD COUNT (AUTO) 11.5 K/uL (4.8-10.8)
[2016-04-10 06:58] LABS: ALBUMIN 1.5 g/dL (3.4-4.8); CALCIUM 7.6 mg/dL (8.4-11.0); CREATININE 0.87 mg/dL (0.55-1.30); PHOSPHORUS 3.1 mg/dL (2.7-4.5); POTASSIUM 3.4 mmol/L (3.5-5.1); TOTAL BILIRUBIN 0.4 mg/dL (0.0-1.0); TOTAL PROTEIN, SERUM 5.4 g/dL (6.4-8.3)
[2016-04-10 08:00] VITALS: BP_SYST 130
[2016-04-10] MEDS: FAMOTIDINE PF 20 MG/2 ML VIAL IVP SCH ×2 (08:20→20:56)
[2016-04-10] MEDS: ENOXAPARIN SODIUM 30 MG/0.3 ML SYRINGE SUBCUT SCH (08:21)
[2016-04-10] MEDS ORDERED: DIATR MEGLU/DIATRIZ SOD 30 ML SOLUTION PO ONE (10:17)
[2016-04-10] MEDS: ONDANSETRON HCL 4 MG/2 ML VIAL IVP PRN ×2 (10:27→20:56)
[2016-04-10 12:40] VITALS: BP_SYST 135
[2016-04-10] MEDS: TPN CENTRAL IV SCH ×11 (13:23)
[2016-04-10] MEDS: SODIUM ACETATE IV SCH ×11 (13:23)
[2016-04-10] MEDS: SODIUM CHLORIDE IV SCH ×11 (13:23)
[2016-04-10] MEDS: [UNRECOGNIZED DRUG - OTHER] IV SCH ×11 (13:23)
[2016-04-10 16:00] VITALS: BP_SYST 120
[2016-04-10] MEDS: FAT EMULSIONS 250 ML IV SCH (17:32)
[2016-04-10 19:50] VITALS: BP_SYST 139
[2016-04-11] MEDS: METOCLOPRAMIDE HCL 10 MG/2 ML VIAL IVP SCH ×4 (00:49→17:49)
[2016-04-11 01:20] VITALS: BP_SYST 130
[2016-04-11] MEDS: D5/0.45 NS 1,000 ML IV SCH (01:33)
[2016-04-11] MEDS: HYDROmorphone 1 MG INJ. 1 MG/ML AMPUL IVP PRN ×7 (01:39→22:02)
[2016-04-11] MEDS: ONDANSETRON HCL 4 MG/2 ML VIAL IVP PRN ×3 (01:39→20:42)
[2016-04-11] MEDS: TPN CENTRAL IV SCH ×22 (03:37→18:05)
[2016-04-11] MEDS: SODIUM CHLORIDE IV SCH ×22 (03:37→18:05)
[2016-04-11] MEDS: SODIUM ACETATE IV SCH ×22 (03:37→18:05)
[2016-04-11] MEDS: [UNRECOGNIZED DRUG - OTHER] IV SCH ×22 (03:37→18:05)
[2016-04-11 04:10] VITALS: BP_SYST 122
[2016-04-11] MEDS: metroNIDAZOLE 500 mg/NS 100 ML IV SCH ×3 (05:24→22:08)
[2016-04-11 06:47] LABS: BASOPHILS % (AUTO) 0.1 % (0.0-2.0); EOSINOPHILS # (AUTO) 0.1 K/uL (0.0-0.4); HEMATOCRIT 28.2 % (36-54); HEMOGLOBIN 9.4 g/dL (14.0-18.0); LYMPHOCYTES # (AUTO) 0.6 K/uL (1.0-5.5); MEAN CORPUSCULAR HEMOGLOBIN 29 pg (27-31); MEAN CORPUSCULAR HGB CONC 33 % (32-36); MEAN CORPUSCULAR VOLUME 86 fL (79.0-98.0); MONOCYTES # (AUTO) 0.6 K/uL (0.0-1.0); MONOCYTES % (AUTO) 5.6 % (1.7-9.3); NEUTROPHILS # (AUTO) 10.2 K/uL (1.8-7.7); NEUTROPHILS % (AUTO) 88.3 % (40.0-70.0); PLATELET COUNT (AUTO) 323 K/uL (130-430); RED BLOOD CELL COUNT(AUTO) 3.28 MIL/uL (4.2-6.2); RED CELL DISTRIBUTION WIDTH 12.2 % (9.0-15.0); WHITE BLOOD COUNT (AUTO) 11.5 K/uL (4.8-10.8)
[2016-04-11 07:18] LABS: ALBUMIN 1.5 g/dL (3.4-4.8); CALCIUM 7.9 mg/dL (8.4-11.0); CREATININE 0.92 mg/dL (0.55-1.30); POTASSIUM 3.5 mmol/L (3.5-5.1); TOTAL BILIRUBIN 0.4 mg/dL (0.0-1.0); TOTAL PROTEIN, SERUM 5.8 g/dL (6.4-8.3)
[2016-04-11 08:00] VITALS: BP_SYST 126
[2016-04-11] MEDS ORDERED: POTASSIUM CHLORIDE 40 MEQ in NS 250 ML IV ONE (09:15)
[2016-04-11] MEDS ORDERED: FUROSEMIDE 20 MG/2 ML VIAL IVP ONE (09:15)
[2016-04-11] MEDS: ENOXAPARIN SODIUM 30 MG/0.3 ML SYRINGE SUBCUT SCH (09:19)
[2016-04-11] MEDS: FAMOTIDINE PF 20 MG/2 ML VIAL IVP SCH ×2 (11:42→22:01)
[2016-04-11] MEDS: AMPICILLIN SODIUM/SULBACTAM NA 3 GM in NS 100 ML IV SCH ×2 (11:42→17:50)
[2016-04-11 12:00] VITALS: BP_SYST 132
[2016-04-11] MEDS ORDERED: HYDROmorphone 1 MG INJ. 1 MG/ML AMPUL IVP ONE (13:30)
[2016-04-11 16:00] VITALS: BP_SYST 135
[2016-04-11] MEDS: FAT EMULSIONS 250 ML IV SCH (16:52)
[2016-04-11 19:25] VITALS: BP_SYST 134
[2016-04-11] MEDS: LACTOBACILLUS RHAMNOSUS GG 1 CAP CAPSULE PO SCH (21:58)
[2016-04-12] VITALS: BP_SYST 160
[2016-04-12] MEDS: AMPICILLIN SODIUM/SULBACTAM NA 3 GM in NS 100 ML IV SCH ×4 (00:30→17:29)
[2016-04-12] MEDS: METOCLOPRAMIDE HCL 10 MG/2 ML VIAL IVP SCH ×4 (00:30→17:29)
[2016-04-12] MEDS: HYDROmorphone 1 MG INJ. 1 MG/ML AMPUL IVP PRN ×7 (00:46→21:28)
[2016-04-12 05:08] VITALS: BP_SYST 149
[2016-04-12] MEDS: TPN CENTRAL IV SCH ×22 (06:02→21:43)
[2016-04-12] MEDS: [UNRECOGNIZED DRUG - OTHER] IV SCH ×22 (06:02→21:43)
[2016-04-12] MEDS: SODIUM ACETATE IV SCH ×22 (06:02→21:43)
[2016-04-12] MEDS: SODIUM CHLORIDE IV SCH ×22 (06:02→21:43)
[2016-04-12] MEDS: metroNIDAZOLE 500 mg/NS 100 ML IV SCH ×3 (06:03→23:13)
[2016-04-12 06:34] LABS: CALCIUM 7.8 mg/dL (8.4-11.0); CREATININE 0.94 mg/dL (0.55-1.30); POTASSIUM 3.8 mmol/L (3.5-5.1)
[2016-04-12 07:05] LABS: BASOPHILS % (AUTO) 0.2 % (0.0-2.0); EOSINOPHILS # (AUTO) 0.2 K/uL (0.0-0.4); EOSINOPHILS % (AUTO) 1.6 % (0.0-4.0); HEMOGLOBIN 8.9 g/dL (14.0-18.0); LYMPHOCYTES # (AUTO) 0.6 K/uL (1.0-5.5); LYMPHOCYTES % (AUTO) 5.8 % (20.5-51.5); MEAN CORPUSCULAR HEMOGLOBIN 29 pg (27-31); MEAN CORPUSCULAR HGB CONC 33 % (32-36); MEAN CORPUSCULAR VOLUME 86 fL (79.0-98.0); MONOCYTES # (AUTO) 0.6 K/uL (0.0-1.0); MONOCYTES % (AUTO) 5.7 % (1.7-9.3); NEUTROPHILS # (AUTO) 9.1 K/uL (1.8-7.7); NEUTROPHILS % (AUTO) 86.7 % (40.0-70.0); PLATELET COUNT (AUTO) 318 K/uL (130-430); RED BLOOD CELL COUNT(AUTO) 3.13 MIL/uL (4.2-6.2); RED CELL DISTRIBUTION WIDTH 12.3 % (9.0-15.0); WHITE BLOOD COUNT (AUTO) 10.5 K/uL (4.8-10.8)
[2016-04-12 08:00] VITALS: BP_SYST 162
[2016-04-12] MEDS ORDERED: POTASSIUM CHLORIDE 40 MEQ, MAGNESIUM SULFATE 4 GM in 0.45% NS 250 ML IV ONE (08:30)
[2016-04-12] MEDS ORDERED: FUROSEMIDE 40 MG/4 ML VIAL IVP ONE (08:30)
[2016-04-12] MEDS: ENOXAPARIN SODIUM 30 MG/0.3 ML SYRINGE SUBCUT SCH (08:58)
[2016-04-12] MEDS: FAMOTIDINE PF 20 MG/2 ML VIAL IVP SCH ×2 (09:00→21:29)
[2016-04-12] MEDS: LACTOBACILLUS RHAMNOSUS GG 1 CAP CAPSULE PO SCH ×2 (09:00→21:29)
[2016-04-12] MEDS ORDERED: LIDOCAINE 1%, 20 ML MDV 0 ML ONE (11:21)
[2016-04-12 12:00] VITALS: BP_SYST 133
[2016-04-12] MEDS: FAT EMULSIONS 250 ML IV SCH (15:30)
[2016-04-12 16:00] VITALS: BP_SYST 140
[2016-04-12] MEDS ORDERED: COMMUNICATION ORDER XX SCH (18:30)
[2016-04-12 19:47] VITALS: BP_SYST 142
[2016-04-12] MEDS: TEMAZEPAM 15 MG CAPSULE PO PRN (23:17)
[2016-04-13] MEDS: METOCLOPRAMIDE HCL 10 MG/2 ML VIAL IVP SCH ×4 (00:25→18:28)
[2016-04-13] MEDS: AMPICILLIN SODIUM/SULBACTAM NA 3 GM in NS 100 ML IV SCH ×4 (00:26→18:29)
[2016-04-13] MEDS: FAT EMULSIONS 250 ML IV SCH (00:27)
[2016-04-13 01:00] VITALS: BP_SYST 137
[2016-04-13] MEDS: HYDROmorphone 1 MG INJ. 1 MG/ML AMPUL IVP PRN ×9 (02:03→21:47)
[2016-04-13 04:00] VITALS: BP_SYST 129
[2016-04-13] MEDS: TPN CENTRAL IV SCH ×22 (05:44→12:29)
[2016-04-13] MEDS: [UNRECOGNIZED DRUG - OTHER] IV SCH ×22 (05:44→12:29)
[2016-04-13] MEDS: SODIUM ACETATE IV SCH ×22 (05:44→12:29)
[2016-04-13] MEDS: SODIUM CHLORIDE IV SCH ×22 (05:44→12:29)
[2016-04-13] MEDS: metroNIDAZOLE 500 mg/NS 100 ML IV SCH ×3 (06:22→21:49)
[2016-04-13 07:04] LABS: CALCIUM 7.9 mg/dL (8.4-11.0); CREATININE 0.91 mg/dL (0.55-1.30); POTASSIUM 4.2 mmol/L (3.5-5.1)
[2016-04-13 07:14] LABS: BASOPHILS % (AUTO) 0.2 % (0.0-2.0); EOSINOPHILS # (AUTO) 0.2 K/uL (0.0-0.4); EOSINOPHILS % (AUTO) 2.4 % (0.0-4.0); HEMATOCRIT 27.1 % (36-54); HEMOGLOBIN 9.1 g/dL (14.0-18.0); LYMPHOCYTES # (AUTO) 0.6 K/uL (1.0-5.5); LYMPHOCYTES % (AUTO) 8.2 % (20.5-51.5); MEAN CORPUSCULAR HEMOGLOBIN 29 pg (27-31); MEAN CORPUSCULAR HGB CONC 34 % (32-36); MEAN CORPUSCULAR VOLUME 86 fL (79.0-98.0); MONOCYTES # (AUTO) 0.4 K/uL (0.0-1.0); MONOCYTES % (AUTO) 5.3 % (1.7-9.3); NEUTROPHILS # (AUTO) 6.4 K/uL (1.8-7.7); PLATELET COUNT (AUTO) 336 K/uL (130-430); RED BLOOD CELL COUNT(AUTO) 3.15 MIL/uL (4.2-6.2); RED CELL DISTRIBUTION WIDTH 12.5 % (9.0-15.0); WHITE BLOOD COUNT (AUTO) 7.6 K/uL (4.8-10.8)
[2016-04-13 07:15] LABS: ALBUMIN 1.6 g/dL (3.4-4.8); PHOSPHORUS 3.7 mg/dL (2.7-4.5); TOTAL BILIRUBIN 0.4 mg/dL (0.0-1.0); TOTAL PROTEIN, SERUM 5.8 g/dL (6.4-8.3)
[2016-04-13 08:05] VITALS: BP_SYST 132
[2016-04-13] MEDS: LACTOBACILLUS RHAMNOSUS GG 1 CAP CAPSULE PO SCH ×2 (10:15→20:15)
[2016-04-13] MEDS: ONDANSETRON HCL 4 MG/2 ML VIAL IVP PRN (10:15)
[2016-04-13] MEDS: ENOXAPARIN SODIUM 30 MG/0.3 ML SYRINGE SUBCUT SCH (10:23)
[2016-04-13] MEDS: FAMOTIDINE PF 20 MG/2 ML VIAL IVP SCH ×2 (10:33→20:48)
[2016-04-13 12:00] VITALS: BP_SYST 135
[2016-04-13 12:19] LABS: NEUTROPHILS % (AUTO) 83.9 % (40.0-70.0)
[2016-04-13 16:00] VITALS: BP_SYST 131
[2016-04-13 19:00] VITALS: BP_SYST 134
[2016-04-14] VITALS: BP_SYST 127
[2016-04-14] MEDS: METOCLOPRAMIDE HCL 10 MG/2 ML VIAL IVP SCH ×5 (00:40→23:39)
[2016-04-14] MEDS: AMPICILLIN SODIUM/SULBACTAM NA 3 GM in NS 100 ML IV SCH ×5 (00:41→23:39)
[2016-04-14] MEDS: HYDROmorphone 1 MG INJ. 1 MG/ML AMPUL IVP PRN ×11 (00:42→23:47)
[2016-04-14] MEDS: SODIUM CHLORIDE IV SCH ×44 (00:47→23:50)
[2016-04-14] MEDS: SODIUM ACETATE IV SCH ×44 (00:47→23:50)
[2016-04-14] MEDS: TPN CENTRAL IV SCH ×44 (00:47→23:50)
[2016-04-14] MEDS: [UNRECOGNIZED DRUG - OTHER] IV SCH ×44 (00:47→23:50)
[2016-04-14 04:00] VITALS: BP_SYST 142
[2016-04-14] MEDS: metroNIDAZOLE 500 mg/NS 100 ML IV SCH ×3 (05:22→21:20)
[2016-04-14 09:25] VITALS: BP_SYST 125
[2016-04-14] MEDS: ENOXAPARIN SODIUM 30 MG/0.3 ML SYRINGE SUBCUT SCH (09:34)
[2016-04-14] MEDS: FAMOTIDINE PF 20 MG/2 ML VIAL IVP SCH ×2 (09:34→20:05)
[2016-04-14] MEDS: LACTOBACILLUS RHAMNOSUS GG 1 CAP CAPSULE PO SCH ×2 (09:34→20:05)
[2016-04-14 12:14] VITALS: BP_SYST 132
[2016-04-14] MEDS: ONDANSETRON HCL 4 MG/2 ML VIAL IVP PRN (12:40)
[2016-04-14 16:22] VITALS: BP_SYST 130
[2016-04-14] MEDS: FAT EMULSIONS 250 ML IV SCH (17:52)
[2016-04-14 19:08] VITALS: BP_SYST 132
[2016-04-15] VITALS: BP_SYST 123
[2016-04-15] MEDS: HYDROmorphone 1 MG INJ. 1 MG/ML AMPUL IVP PRN ×11 (02:58→22:55)
[2016-04-15 04:19] VITALS: BP_SYST 122
[2016-04-15] MEDS: AMPICILLIN SODIUM/SULBACTAM NA 3 GM in NS 100 ML IV SCH ×2 (05:22→11:28)
[2016-04-15] MEDS: metroNIDAZOLE 500 mg/NS 100 ML IV SCH ×3 (05:22→22:48)
[2016-04-15] MEDS: METOCLOPRAMIDE HCL 10 MG/2 ML VIAL IVP SCH ×3 (05:23→17:16)
[2016-04-15 07:00] LABS: ALBUMIN 1.7 g/dL (3.4-4.8); CALCIUM 8.1 mg/dL (8.4-11.0); CREATININE 0.86 mg/dL (0.55-1.30); TOTAL BILIRUBIN 0.4 mg/dL (0.0-1.0); TOTAL PROTEIN, SERUM 6.1 g/dL (6.4-8.3)
[2016-04-15 07:42] LABS: BASOPHILS % (AUTO) 0.3 % (0.0-2.0); EOSINOPHILS # (AUTO) 0.2 K/uL (0.0-0.4); EOSINOPHILS % (AUTO) 2.9 % (0.0-4.0); HEMATOCRIT 27.9 % (36-54); HEMOGLOBIN 9.3 g/dL (14.0-18.0); LYMPHOCYTES # (AUTO) 0.6 K/uL (1.0-5.5); LYMPHOCYTES % (AUTO) 9.1 % (20.5-51.5); MEAN CORPUSCULAR HEMOGLOBIN 29 pg (27-31); MEAN CORPUSCULAR HGB CONC 34 % (32-36); MEAN CORPUSCULAR VOLUME 86 fL (79.0-98.0); MONOCYTES # (AUTO) 0.4 K/uL (0.0-1.0); MONOCYTES % (AUTO) 5.8 % (1.7-9.3); NEUTROPHILS # (AUTO) 5.9 K/uL (1.8-7.7); NEUTROPHILS % (AUTO) 81.9 % (40.0-70.0); PLATELET COUNT (AUTO) 309 K/uL (130-430); RED BLOOD CELL COUNT(AUTO) 3.25 MIL/uL (4.2-6.2); RED CELL DISTRIBUTION WIDTH 12.2 % (9.0-15.0); WHITE BLOOD COUNT (AUTO) 7.1 K/uL (4.8-10.8)
[2016-04-15 09:15] VITALS: BP_SYST 116
[2016-04-15] MEDS: ENOXAPARIN SODIUM 30 MG/0.3 ML SYRINGE SUBCUT SCH (09:26)
[2016-04-15] MEDS: LACTOBACILLUS RHAMNOSUS GG 1 CAP CAPSULE PO SCH ×2 (09:26→20:26)
[2016-04-15] MEDS: FAMOTIDINE PF 20 MG/2 ML VIAL IVP SCH ×2 (09:43→20:27)
[2016-04-15] MEDS: ONDANSETRON HCL 4 MG/2 ML VIAL IVP PRN ×2 (09:48→15:06)
[2016-04-15 11:48] VITALS: BP_SYST 139
[2016-04-15] MEDS: SODIUM CHLORIDE IV SCH ×11 (11:57)
[2016-04-15] MEDS: TPN CENTRAL IV SCH ×11 (11:57)
[2016-04-15] MEDS: SODIUM ACETATE IV SCH ×11 (11:57)
[2016-04-15] MEDS: [UNRECOGNIZED DRUG - OTHER] IV SCH ×11 (11:57)
[2016-04-15] MEDS ORDERED: COMMUNICATION ORDER XX ONE (14:30)
[2016-04-15 15:30] VITALS: BP_SYST 132
[2016-04-15] MEDS: PIPERACILLIN/TAZOBACTAM 3.375 GM/ D5W 50 ML IV SCH ×4 (15:53→17:26)
[2016-04-15] MEDS: FAT EMULSIONS 250 ML IV SCH (17:20)
[2016-04-15 20:09] VITALS: BP_SYST 134
[2016-04-16] VITALS: BP_SYST 130
[2016-04-16] MEDS: PIPERACILLIN/TAZOBACTAM 3.375 GM/ D5W 50 ML IV SCH ×8 (00:21→18:00)
[2016-04-16] MEDS: METOCLOPRAMIDE HCL 10 MG/2 ML VIAL IVP SCH ×4 (00:22→18:00)
[2016-04-16] MEDS: TPN CENTRAL IV SCH ×32 (00:23→20:53)
[2016-04-16] MEDS: SODIUM CHLORIDE IV SCH ×32 (00:23→20:53)
[2016-04-16] MEDS: SODIUM ACETATE IV SCH ×22 (00:23→09:40)
[2016-04-16] MEDS: [UNRECOGNIZED DRUG - OTHER] IV SCH ×22 (00:23→09:40)
[2016-04-16] MEDS: HYDROmorphone 1 MG INJ. 1 MG/ML AMPUL IVP PRN ×9 (00:33→22:25)
[2016-04-16 04:00] VITALS: BP_SYST 127
[2016-04-16 06:53] LABS: CREATININE 0.88 mg/dL (0.55-1.30); PHOSPHORUS 4.2 mg/dL (2.7-4.5); POTASSIUM 4.1 mmol/L (3.5-5.1)
[2016-04-16] MEDS: metroNIDAZOLE 500 mg/NS 100 ML IV SCH (06:55)
[2016-04-16 06:56] LABS: BASOPHILS % (AUTO) 0.3 % (0.0-2.0); EOSINOPHILS # (AUTO) 0.2 K/uL (0.0-0.4); EOSINOPHILS % (AUTO) 3.8 % (0.0-4.0); LYMPHOCYTES # (AUTO) 0.8 K/uL (1.0-5.5); LYMPHOCYTES % (AUTO) 14.5 % (20.5-51.5); MEAN CORPUSCULAR HEMOGLOBIN 29 pg (27-31); MEAN CORPUSCULAR HGB CONC 33 % (32-36); MEAN CORPUSCULAR VOLUME 86 fL (79.0-98.0); MONOCYTES # (AUTO) 0.4 K/uL (0.0-1.0); MONOCYTES % (AUTO) 8.1 % (1.7-9.3); NEUTROPHILS # (AUTO) 3.8 K/uL (1.8-7.7); NEUTROPHILS % (AUTO) 73.3 % (40.0-70.0); PLATELET COUNT (AUTO) 301 K/uL (130-430); RED BLOOD CELL COUNT(AUTO) 3.16 MIL/uL (4.2-6.2); RED CELL DISTRIBUTION WIDTH 12.1 % (9.0-15.0); WHITE BLOOD COUNT (AUTO) 5.2 K/uL (4.8-10.8)
[2016-04-16] MEDS: FAMOTIDINE PF 20 MG/2 ML VIAL IVP SCH ×2 (09:29→20:51)
[2016-04-16] MEDS: LACTOBACILLUS RHAMNOSUS GG 1 CAP CAPSULE PO SCH (09:29)
[2016-04-16] MEDS: ENOXAPARIN SODIUM 30 MG/0.3 ML SYRINGE SUBCUT SCH (09:29)
[2016-04-16 12:00] VITALS: BP_SYST 127
[2016-04-16] MEDS: ONDANSETRON HCL 4 MG/2 ML VIAL IVP PRN (14:52)
[2016-04-16] MEDS: FAT EMULSIONS 250 ML IV SCH (15:10)
[2016-04-16 15:39] VITALS: BP_SYST 145
[2016-04-16] MEDS: MENTHOL/ZINC OXIDE 113 GM OINT. TP SCH ×2 (17:00→21:09)
[2016-04-16] MEDS ORDERED: MENTHOL/ZINC OXIDE 113 GM OINT. TP PRN (17:00)
[2016-04-16 19:25] VITALS: BP_SYST 141
[2016-04-16] MEDS: POTASSIUM CHLORIDE IV SCH ×10 (20:53)
[2016-04-16] MEDS: [UNRECOGNIZED DRUG - OTHER] IV SCH ×10 (20:53)
[2016-04-16] MEDS ORDERED: MENTHOL/ZINC OXIDE 113 GM OINT. TP SCH (21:00)
[2016-04-17 00:11] VITALS: BP_SYST 121
[2016-04-17] MEDS: METOCLOPRAMIDE HCL 10 MG/2 ML VIAL IVP SCH ×5 (00:21→23:18)
[2016-04-17] MEDS: PIPERACILLIN/TAZOBACTAM 3.375 GM/ D5W 50 ML IV SCH ×10 (00:21→23:18)
[2016-04-17 04:43] VITALS: BP_SYST 150
[2016-04-17] MEDS: HYDROmorphone 1 MG INJ. 1 MG/ML AMPUL IVP PRN ×9 (06:14→23:19)
[2016-04-17] MEDS: POTASSIUM CHLORIDE IV SCH ×20 (06:26→16:20)
[2016-04-17] MEDS: SODIUM CHLORIDE IV SCH ×20 (06:26→16:20)
[2016-04-17] MEDS: TPN CENTRAL IV SCH ×20 (06:26→16:20)
[2016-04-17] MEDS: [UNRECOGNIZED DRUG - OTHER] IV SCH ×20 (06:26→16:20)
[2016-04-17 06:48] LABS: CALCIUM 7.8 mg/dL (8.4-11.0); CREATININE 0.9 mg/dL (0.55-1.30); PHOSPHORUS 3.8 mg/dL (2.7-4.5)
[2016-04-17 08:00] VITALS: BP_SYST 139
[2016-04-17] MEDS: MENTHOL/ZINC OXIDE 113 GM OINT. TP SCH ×4 (09:00→20:02)
[2016-04-17] MEDS: FAMOTIDINE PF 20 MG/2 ML VIAL IVP SCH ×2 (09:16→20:01)
[2016-04-17] MEDS: ENOXAPARIN SODIUM 30 MG/0.3 ML SYRINGE SUBCUT SCH (09:16)
[2016-04-17 11:33] VITALS: BP_SYST 151
[2016-04-17] MEDS: FAT EMULSIONS 250 ML IV SCH (16:19)
[2016-04-17 17:22] VITALS: BP_SYST 135
[2016-04-17] MEDS: ONDANSETRON HCL 4 MG/2 ML VIAL IVP PRN (20:02)
[2016-04-17 20:15] VITALS: BP_SYST 125
[2016-04-18 00:50] VITALS: BP_SYST 134
[2016-04-18] MEDS: TPN CENTRAL IV SCH ×30 (01:11→22:30)
[2016-04-18] MEDS: [UNRECOGNIZED DRUG - OTHER] IV SCH ×30 (01:11→22:30)
[2016-04-18] MEDS: SODIUM CHLORIDE IV SCH ×30 (01:11→22:30)
[2016-04-18] MEDS: POTASSIUM CHLORIDE IV SCH ×30 (01:11→22:30)
[2016-04-18 04:08] VITALS: BP_SYST 148
[2016-04-18] MEDS: HYDROmorphone 1 MG INJ. 1 MG/ML AMPUL IVP PRN ×8 (05:29→22:45)
[2016-04-18] MEDS: PIPERACILLIN/TAZOBACTAM 3.375 GM/ D5W 50 ML IV SCH ×8 (05:30→23:19)
[2016-04-18] MEDS: METOCLOPRAMIDE HCL 10 MG/2 ML VIAL IVP SCH ×4 (05:30→23:18)
[2016-04-18 06:42] LABS: BASOPHILS % (AUTO) 0.3 % (0.0-2.0); EOSINOPHILS # (AUTO) 0.3 K/uL (0.0-0.4); EOSINOPHILS % (AUTO) 4.9 % (0.0-4.0); HEMATOCRIT 27.3 % (36-54); HEMOGLOBIN 9.2 g/dL (14.0-18.0); LYMPHOCYTES # (AUTO) 0.8 K/uL (1.0-5.5); LYMPHOCYTES % (AUTO) 13.7 % (20.5-51.5); MEAN CORPUSCULAR HEMOGLOBIN 29 pg (27-31); MEAN CORPUSCULAR HGB CONC 34 % (32-36); MEAN CORPUSCULAR VOLUME 85 fL (79.0-98.0); MONOCYTES # (AUTO) 0.4 K/uL (0.0-1.0); MONOCYTES % (AUTO) 6.2 % (1.7-9.3); NEUTROPHILS # (AUTO) 4.2 K/uL (1.8-7.7); NEUTROPHILS % (AUTO) 74.9 % (40.0-70.0); PLATELET COUNT (AUTO) 272 K/uL (130-430); RED CELL DISTRIBUTION WIDTH 12.4 % (9.0-15.0); WHITE BLOOD COUNT (AUTO) 5.7 K/uL (4.8-10.8)
[2016-04-18 07:03] LABS: ALBUMIN 1.9 g/dL (3.4-4.8); CALCIUM 8.2 mg/dL (8.4-11.0); CREATININE 0.92 mg/dL (0.55-1.30); POTASSIUM 4.1 mmol/L (3.5-5.1); TOTAL BILIRUBIN 0.4 mg/dL (0.0-1.0); TOTAL PROTEIN, SERUM 6.4 g/dL (6.4-8.3)
[2016-04-18 08:00] VITALS: BP_SYST 136
[2016-04-18] MEDS: FAMOTIDINE PF 20 MG/2 ML VIAL IVP SCH ×2 (08:48→20:42)
[2016-04-18] MEDS: ENOXAPARIN SODIUM 30 MG/0.3 ML SYRINGE SUBCUT SCH (08:51)
[2016-04-18] MEDS: MENTHOL/ZINC OXIDE 113 GM OINT. TP SCH ×4 (09:00→20:42)
[2016-04-18 12:00] VITALS: BP_SYST 94
[2016-04-18] MEDS: ONDANSETRON HCL 4 MG/2 ML VIAL IVP PRN (12:06)
[2016-04-18 16:16] VITALS: BP_SYST 123
[2016-04-18] MEDS: FAT EMULSIONS 250 ML IV SCH (18:36)
[2016-04-18 19:50] VITALS: BP_SYST 142
[2016-04-19] VITALS (15 sets, daily range): BP systolic 129–179
[2016-04-19] MEDS: PIPERACILLIN/TAZOBACTAM 3.375 GM/ D5W 50 ML IV SCH ×8 (05:03→23:18)
[2016-04-19] MEDS: HYDROmorphone 1 MG INJ. 1 MG/ML AMPUL IVP PRN ×2 (05:03→09:16)
[2016-04-19] MEDS: METOCLOPRAMIDE HCL 10 MG/2 ML VIAL IVP SCH ×4 (05:03→23:18)
[2016-04-19 06:41] LABS: BASOPHILS % (AUTO) 0.4 % (0.0-2.0); EOSINOPHILS # (AUTO) 0.3 K/uL (0.0-0.4); EOSINOPHILS % (AUTO) 5.4 % (0.0-4.0); HEMATOCRIT 29.7 % (36-54); HEMOGLOBIN 9.9 g/dL (14.0-18.0); LYMPHOCYTES # (AUTO) 0.7 K/uL (1.0-5.5); MEAN CORPUSCULAR HEMOGLOBIN 29 pg (27-31); MEAN CORPUSCULAR HGB CONC 34 % (32-36); MEAN CORPUSCULAR VOLUME 85 fL (79.0-98.0); MONOCYTES # (AUTO) 0.4 K/uL (0.0-1.0); MONOCYTES % (AUTO) 7.2 % (1.7-9.3); PLATELET COUNT (AUTO) 253 K/uL (130-430); RED BLOOD CELL COUNT(AUTO) 3.48 MIL/uL (4.2-6.2); RED CELL DISTRIBUTION WIDTH 12.5 % (9.0-15.0); WHITE BLOOD COUNT (AUTO) 5.4 K/uL (4.8-10.8)
[2016-04-19 07:10] LABS: ALBUMIN 2.1 g/dL (3.4-4.8); CALCIUM 8.2 mg/dL (8.4-11.0); CREATININE 0.9 mg/dL (0.55-1.30); PHOSPHORUS 3.7 mg/dL (2.7-4.5); TOTAL BILIRUBIN 0.5 mg/dL (0.0-1.0); TOTAL PROTEIN, SERUM 6.9 g/dL (6.4-8.3)
[2016-04-19] MEDS: [UNRECOGNIZED DRUG - OTHER] IV SCH ×20 (09:01→18:36)
[2016-04-19] MEDS: TPN CENTRAL IV SCH ×20 (09:01→18:36)
[2016-04-19] MEDS: SODIUM CHLORIDE IV SCH ×20 (09:01→18:36)
[2016-04-19] MEDS: POTASSIUM CHLORIDE IV SCH ×20 (09:01→18:36)
[2016-04-19] MEDS: FAMOTIDINE PF 20 MG/2 ML VIAL IVP SCH ×2 (09:02→21:25)
[2016-04-19] MEDS: ENOXAPARIN SODIUM 30 MG/0.3 ML SYRINGE SUBCUT SCH (09:02)
[2016-04-19] MEDS: MENTHOL/ZINC OXIDE 113 GM OINT. TP SCH ×4 (09:03→21:29)
[2016-04-19] MEDS ORDERED: NALOXONE HCL 0.4 MG/ML AMP (NARCAN) IVP PRN (11:45)
[2016-04-19] MEDS: HYDROMORPHONE PCA 10 mg/50 mL IV PRN ×2 (12:35→23:40)
[2016-04-19] MEDS: FAT EMULSIONS 250 ML IV SCH (16:04)
[2016-04-20] VITALS (7 sets, daily range): BP systolic 127–147
[2016-04-20] MEDS: [UNRECOGNIZED DRUG - OTHER] IV SCH ×30 (03:01→22:46)
[2016-04-20] MEDS: SODIUM CHLORIDE IV SCH ×30 (03:01→22:46)
[2016-04-20] MEDS: TPN CENTRAL IV SCH ×30 (03:01→22:46)
[2016-04-20] MEDS: POTASSIUM CHLORIDE IV SCH ×30 (03:01→22:46)
[2016-04-20] MEDS: PIPERACILLIN/TAZOBACTAM 3.375 GM/ D5W 50 ML IV SCH ×6 (05:37→17:38)
[2016-04-20] MEDS: METOCLOPRAMIDE HCL 10 MG/2 ML VIAL IVP SCH ×3 (05:37→17:38)
[2016-04-20 06:31] LABS: ALBUMIN 2.1 g/dL (3.4-4.8); CALCIUM 8.1 mg/dL (8.4-11.0); CREATININE 0.9 mg/dL (0.55-1.30); POTASSIUM 3.8 mmol/L (3.5-5.1); TOTAL BILIRUBIN 0.5 mg/dL (0.0-1.0); TOTAL PROTEIN, SERUM 6.5 g/dL (6.4-8.3)
[2016-04-20 06:44] LABS: BASOPHILS % (AUTO) 0.3 % (0.0-2.0); EOSINOPHILS # (AUTO) 0.3 K/uL (0.0-0.4); EOSINOPHILS % (AUTO) 5.4 % (0.0-4.0); HEMATOCRIT 27.6 % (36-54); HEMOGLOBIN 9.4 g/dL (14.0-18.0); LYMPHOCYTES # (AUTO) 0.7 K/uL (1.0-5.5); LYMPHOCYTES % (AUTO) 13.2 % (20.5-51.5); MEAN CORPUSCULAR HEMOGLOBIN 29 pg (27-31); MEAN CORPUSCULAR HGB CONC 34 % (32-36); MEAN CORPUSCULAR VOLUME 86 fL (79.0-98.0); MONOCYTES # (AUTO) 0.4 K/uL (0.0-1.0); MONOCYTES % (AUTO) 7.1 % (1.7-9.3); NEUTROPHILS # (AUTO) 3.8 K/uL (1.8-7.7); PLATELET COUNT (AUTO) 219 K/uL (130-430); RED BLOOD CELL COUNT(AUTO) 3.22 MIL/uL (4.2-6.2); RED CELL DISTRIBUTION WIDTH 12.7 % (9.0-15.0); WHITE BLOOD COUNT (AUTO) 5.2 K/uL (4.8-10.8)
[2016-04-20] MEDS: FAMOTIDINE PF 20 MG/2 ML VIAL IVP SCH ×2 (09:12→21:24)
[2016-04-20] MEDS: MENTHOL/ZINC OXIDE 113 GM OINT. TP SCH ×4 (09:12→21:25)
[2016-04-20] MEDS: ENOXAPARIN SODIUM 30 MG/0.3 ML SYRINGE SUBCUT SCH (09:12)
[2016-04-20] MEDS: FAT EMULSIONS 250 ML IV SCH (15:35)
[2016-04-20] MEDS: HYDROMORPHONE PCA 10 mg/50 mL IV PRN (19:00)
[2016-04-21] MEDS: PIPERACILLIN/TAZOBACTAM 3.375 GM/ D5W 50 ML IV SCH ×8 (01:00→18:00)
[2016-04-21] MEDS: METOCLOPRAMIDE HCL 10 MG/2 ML VIAL IVP SCH ×4 (01:00→18:00)
[2016-04-21 04:48] VITALS: BP_SYST 129
[2016-04-21 06:50] LABS: BASOPHILS % (AUTO) 0.3 % (0.0-2.0); EOSINOPHILS # (AUTO) 0.2 K/uL (0.0-0.4); EOSINOPHILS % (AUTO) 5.9 % (0.0-4.0); HEMATOCRIT 28.3 % (36-54); HEMOGLOBIN 9.6 g/dL (14.0-18.0); LYMPHOCYTES # (AUTO) 0.7 K/uL (1.0-5.5); LYMPHOCYTES % (AUTO) 16.1 % (20.5-51.5); MEAN CORPUSCULAR HEMOGLOBIN 29 pg (27-31); MEAN CORPUSCULAR HGB CONC 34 % (32-36); MEAN CORPUSCULAR VOLUME 86 fL (79.0-98.0); MONOCYTES # (AUTO) 0.3 K/uL (0.0-1.0); MONOCYTES % (AUTO) 6.7 % (1.7-9.3); PLATELET COUNT (AUTO) 197 K/uL (130-430); RED CELL DISTRIBUTION WIDTH 12.7 % (9.0-15.0); WHITE BLOOD COUNT (AUTO) 4.2 K/uL (4.8-10.8)
[2016-04-21 07:04] LABS: ALBUMIN 2.2 g/dL (3.4-4.8); CALCIUM 8.3 mg/dL (8.4-11.0); CREATININE 0.9 mg/dL (0.55-1.30); POTASSIUM 4.3 mmol/L (3.5-5.1); TOTAL BILIRUBIN 0.4 mg/dL (0.0-1.0); TOTAL PROTEIN, SERUM 6.6 g/dL (6.4-8.3)
[2016-04-21 08:00] VITALS: BP_SYST 128
[2016-04-21] MEDS: FAMOTIDINE PF 20 MG/2 ML VIAL IVP SCH ×2 (09:17→21:41)
[2016-04-21] MEDS: ENOXAPARIN SODIUM 30 MG/0.3 ML SYRINGE SUBCUT SCH (09:17)
[2016-04-21] MEDS: SODIUM CHLORIDE IV SCH ×20 (09:18→19:34)
[2016-04-21] MEDS: POTASSIUM CHLORIDE IV SCH ×20 (09:18→19:34)
[2016-04-21] MEDS: TPN CENTRAL IV SCH ×20 (09:18→19:34)
[2016-04-21] MEDS: [UNRECOGNIZED DRUG - OTHER] IV SCH ×20 (09:18→19:34)
[2016-04-21] MEDS: MENTHOL/ZINC OXIDE 113 GM OINT. TP SCH ×4 (09:20→21:40)
[2016-04-21 11:46] VITALS: BP_SYST 145
[2016-04-21] MEDS: FAT EMULSIONS 250 ML IV SCH (14:24)
[2016-04-21 16:43] VITALS: BP_SYST 161
[2016-04-21 19:25] VITALS: BP_SYST 154
[2016-04-21] MEDS: ONDANSETRON HCL 4 MG/2 ML VIAL IVP PRN (19:53)
[2016-04-22 00:22] VITALS: BP_SYST 158
[2016-04-22] MEDS: PIPERACILLIN/TAZOBACTAM 3.375 GM/ D5W 50 ML IV SCH ×10 (00:37→23:44)
[2016-04-22] MEDS: METOCLOPRAMIDE HCL 10 MG/2 ML VIAL IVP SCH ×5 (00:37→23:44)
[2016-04-22 04:29] VITALS: BP_SYST 138
[2016-04-22] MEDS: SODIUM CHLORIDE IV SCH ×30 (05:30→23:18)
[2016-04-22] MEDS: POTASSIUM CHLORIDE IV SCH ×30 (05:30→23:18)
[2016-04-22] MEDS: TPN CENTRAL IV SCH ×30 (05:30→23:18)
[2016-04-22] MEDS: [UNRECOGNIZED DRUG - OTHER] IV SCH ×30 (05:30→23:18)
[2016-04-22] MEDS: HYDROMORPHONE PCA 10 mg/50 mL IV PRN ×2 (06:37→23:56)
[2016-04-22 07:09] LABS: CALCIUM 8.3 mg/dL (8.4-11.0); CREATININE 0.98 mg/dL (0.55-1.30); POTASSIUM 4.2 mmol/L (3.5-5.1)
[2016-04-22 08:00] VITALS: BP_SYST 122
[2016-04-22] MEDS: ENOXAPARIN SODIUM 30 MG/0.3 ML SYRINGE SUBCUT SCH (08:41)
[2016-04-22] MEDS: FAMOTIDINE PF 20 MG/2 ML VIAL IVP SCH ×2 (08:42→21:35)
[2016-04-22] MEDS: MENTHOL/ZINC OXIDE 113 GM OINT. TP SCH ×4 (09:00→21:36)
[2016-04-22 12:00] VITALS: BP_SYST 134
[2016-04-22] MEDS: FAT EMULSIONS 250 ML IV SCH (13:33)
[2016-04-22 19:50] VITALS: BP_SYST 137
[2016-04-23 00:16] VITALS: BP_SYST 124
[2016-04-23] MEDS: POTASSIUM CHLORIDE IV SCH ×30 (03:19→20:53)
[2016-04-23] MEDS: [UNRECOGNIZED DRUG - OTHER] IV SCH ×30 (03:19→20:53)
[2016-04-23] MEDS: SODIUM CHLORIDE IV SCH ×30 (03:19→20:53)
[2016-04-23] MEDS: TPN CENTRAL IV SCH ×30 (03:19→20:53)
[2016-04-23 04:02] VITALS: BP_SYST 146
[2016-04-23] MEDS: PIPERACILLIN/TAZOBACTAM 3.375 GM/ D5W 50 ML IV SCH ×4 (05:33→11:48)
[2016-04-23] MEDS: METOCLOPRAMIDE HCL 10 MG/2 ML VIAL IVP SCH ×4 (05:33→23:27)
[2016-04-23] MEDS: ONDANSETRON HCL 4 MG/2 ML VIAL IVP PRN ×2 (06:20→16:39)
[2016-04-23 06:51] LABS: BASOPHILS % (AUTO) 0.4 % (0.0-2.0); EOSINOPHILS # (AUTO) 0.1 K/uL (0.0-0.4); EOSINOPHILS % (AUTO) 3.3 % (0.0-4.0); HEMATOCRIT 29.8 % (36-54); HEMOGLOBIN 10.3 g/dL (14.0-18.0); LYMPHOCYTES # (AUTO) 0.5 K/uL (1.0-5.5); LYMPHOCYTES % (AUTO) 11.5 % (20.5-51.5); MEAN CORPUSCULAR HEMOGLOBIN 30 pg (27-31); MEAN CORPUSCULAR HGB CONC 35 % (32-36); MEAN CORPUSCULAR VOLUME 86 fL (79.0-98.0); MONOCYTES # (AUTO) 0.3 K/uL (0.0-1.0); MONOCYTES % (AUTO) 6.2 % (1.7-9.3); NEUTROPHILS # (AUTO) 3.2 K/uL (1.8-7.7); NEUTROPHILS % (AUTO) 78.6 % (40.0-70.0); PLATELET COUNT (AUTO) 180 K/uL (130-430); RED BLOOD CELL COUNT(AUTO) 3.47 MIL/uL (4.2-6.2); RED CELL DISTRIBUTION WIDTH 13.4 % (9.0-15.0); WHITE BLOOD COUNT (AUTO) 4.1 K/uL (4.8-10.8)
[2016-04-23 06:57] LABS: ALBUMIN 2.4 g/dL (3.4-4.8); CALCIUM 8.3 mg/dL (8.4-11.0); CREATININE 0.95 mg/dL (0.55-1.30); PHOSPHORUS 3.3 mg/dL (2.7-4.5); TOTAL BILIRUBIN 0.6 mg/dL (0.0-1.0)
[2016-04-23 07:58] VITALS: BP_SYST 123
[2016-04-23] MEDS: FAMOTIDINE PF 20 MG/2 ML VIAL IVP SCH ×2 (09:11→20:46)
[2016-04-23] MEDS: ENOXAPARIN SODIUM 30 MG/0.3 ML SYRINGE SUBCUT SCH (09:12)
[2016-04-23] MEDS: MENTHOL/ZINC OXIDE 113 GM OINT. TP SCH ×4 (09:20→20:47)
[2016-04-23 12:00] VITALS: BP_SYST 139
[2016-04-23] MEDS: FAT EMULSIONS 250 ML IV SCH (12:18)
[2016-04-23 16:00] VITALS: BP_SYST 139
[2016-04-23] MEDS: ACETAMINOPHEN 650 MG SUPP.RECT RC PRN (16:51)
[2016-04-23] MEDS: MICAFUNGIN SODIUM 100 MG in NS 100 ML IV SCH (18:19)
[2016-04-23] MEDS: HYDROMORPHONE PCA 10 mg/50 mL IV PRN (18:31)
[2016-04-23 20:42] VITALS: BP_SYST 110
[2016-04-23 21:30] LABS: BILIRUBIN,URINE NEGATIVE (NEGATIVE); CLARITY/URINE SL HAZY (CLEAR); COLOR,URINE AMBER (YELLOW); GLUCOSE,URINE NEGATIVE (NEGATIVE); KETONES,URINE NEGATIVE (NEGATIVE); LEUKOCYTE ESTERASE ,URINE NEGATIVE (NEGATIVE); NITRITE, URINE NEGATIVE (NEGATIVE); PH,URINE 5.5 (5.0-8.0); PROTEIN URINE 1+ (NEGATIVE); UROBILINOGEN,URINE 0.2 (0.2-1.0)
[2016-04-23 21:40] LABS: BLOOD, URINE TRACE (NEGATIVE)
[2016-04-23 21:57] LABS: RBC,URINE 0-3 /HPF (0-3)
[2016-04-23 21:58] LABS: BACTERIA,URINE FEW /HPF (None Seen); COARSE GRANULAR CASTS,URINE 0-10 /LPF (None Seen); MUCUS,URINE 1+ /LPF (None Seen)
[2016-04-24] VITALS (9 sets, daily range): BP systolic 115–140
[2016-04-24] MEDS: ACETAMINOPHEN 650 MG SUPP.RECT RC PRN ×4 (00:34→23:15)
[2016-04-24] MEDS: METOCLOPRAMIDE HCL 10 MG/2 ML VIAL IVP SCH ×4 (04:55→23:15)
[2016-04-24] MEDS: POTASSIUM CHLORIDE IV SCH ×20 (05:03→15:31)
[2016-04-24] MEDS: [UNRECOGNIZED DRUG - OTHER] IV SCH ×20 (05:03→15:31)
[2016-04-24] MEDS: TPN CENTRAL IV SCH ×20 (05:03→15:31)
[2016-04-24] MEDS: SODIUM CHLORIDE IV SCH ×20 (05:03→15:31)
[2016-04-24] MEDS: HYDROMORPHONE PCA 10 mg/50 mL IV PRN ×2 (05:18→17:54)
[2016-04-24 06:49] LABS: BASOPHILS % (AUTO) 0.2 % (0.0-2.0); EOSINOPHILS % (AUTO) 0.3 % (0.0-4.0); HEMATOCRIT 28.3 % (36-54); HEMOGLOBIN 9.5 g/dL (14.0-18.0); LYMPHOCYTES # (AUTO) 0.4 K/uL (1.0-5.5); LYMPHOCYTES % (AUTO) 11.7 % (20.5-51.5); MEAN CORPUSCULAR HEMOGLOBIN 29 pg (27-31); MEAN CORPUSCULAR HGB CONC 34 % (32-36); MEAN CORPUSCULAR VOLUME 86 fL (79.0-98.0); MONOCYTES # (AUTO) 0.2 K/uL (0.0-1.0); NEUTROPHILS # (AUTO) 3.2 K/uL (1.8-7.7); NEUTROPHILS % (AUTO) 83.8 % (40.0-70.0); PLATELET COUNT (AUTO) 136 K/uL (130-430); RED CELL DISTRIBUTION WIDTH 13.3 % (9.0-15.0); WHITE BLOOD COUNT (AUTO) 3.8 K/uL (4.8-10.8)
[2016-04-24 06:53] LABS: CALCIUM 8.1 mg/dL (8.4-11.0); CREATININE 1.07 mg/dL (0.55-1.30); POTASSIUM 4.1 mmol/L (3.5-5.1)
[2016-04-24] MEDS: ONDANSETRON HCL 4 MG/2 ML VIAL IVP PRN ×3 (08:27→21:12)
[2016-04-24] MEDS: FAMOTIDINE PF 20 MG/2 ML VIAL IVP SCH ×2 (08:27→21:12)
[2016-04-24] MEDS: ENOXAPARIN SODIUM 30 MG/0.3 ML SYRINGE SUBCUT SCH (08:27)
[2016-04-24] MEDS: MENTHOL/ZINC OXIDE 113 GM OINT. TP SCH ×2 (10:18→11:23)
[2016-04-24] MEDS: NYSTATIN 500,000 UNITS/5 ML UDC PO SCH ×3 (12:23→23:15)
[2016-04-24] MEDS: FAT EMULSIONS 250 ML IV SCH (12:27)
[2016-04-24] MEDS: MICAFUNGIN SODIUM 100 MG in NS 100 ML IV SCH (17:45)
[2016-04-24 18:41] LABS: BASOPHILS % (AUTO) 0.1 % (0.0-2.0); EOSINOPHILS % (AUTO) 0.3 % (0.0-4.0); HEMATOCRIT 27.5 % (36-54); HEMOGLOBIN 9.3 g/dL (14.0-18.0); LYMPHOCYTES # (AUTO) 0.5 K/uL (1.0-5.5); LYMPHOCYTES % (AUTO) 13.3 % (20.5-51.5); MEAN CORPUSCULAR HEMOGLOBIN 29 pg (27-31); MEAN CORPUSCULAR HGB CONC 34 % (32-36); MEAN CORPUSCULAR VOLUME 85 fL (79.0-98.0); MONOCYTES # (AUTO) 0.2 K/uL (0.0-1.0); NEUTROPHILS # (AUTO) 3.4 K/uL (1.8-7.7); NEUTROPHILS % (AUTO) 82.3 % (40.0-70.0); PLATELET COUNT (AUTO) 129 K/uL (130-430); RED BLOOD CELL COUNT(AUTO) 3.24 MIL/uL (4.2-6.2); RED CELL DISTRIBUTION WIDTH 13.3 % (9.0-15.0); WHITE BLOOD COUNT (AUTO) 4.1 K/uL (4.8-10.8)
[2016-04-24] MEDS: NYSTATIN 15 GM TOPICAL POWDER TP SCH (21:17)
[2016-04-25] VITALS (8 sets, daily range): BP systolic 125–146
[2016-04-25] MEDS: POTASSIUM CHLORIDE IV SCH ×30 (00:42→19:25)
[2016-04-25] MEDS: TPN CENTRAL IV SCH ×30 (00:42→19:25)
[2016-04-25] MEDS: [UNRECOGNIZED DRUG - OTHER] IV SCH ×10 (00:42)
[2016-04-25] MEDS: SODIUM CHLORIDE IV SCH ×30 (00:42→19:25)
[2016-04-25] MEDS: ONDANSETRON HCL 4 MG/2 ML VIAL IVP PRN ×4 (02:00→20:38)
[2016-04-25] MEDS: NYSTATIN 500,000 UNITS/5 ML UDC PO SCH ×3 (06:06→18:00)
[2016-04-25] MEDS: METOCLOPRAMIDE HCL 10 MG/2 ML VIAL IVP SCH ×3 (06:06→19:01)
[2016-04-25 06:16] LABS: BILIRUBIN,URINE NEGATIVE (NEGATIVE); BLOOD, URINE 1+ (NEGATIVE); CLARITY/URINE SL HAZY (CLEAR); COLOR,URINE YELLOW (YELLOW); GLUCOSE,URINE NEGATIVE (NEGATIVE); KETONES,URINE NEGATIVE (NEGATIVE); LEUKOCYTE ESTERASE ,URINE NEGATIVE (NEGATIVE); NITRITE, URINE NEGATIVE (NEGATIVE); PH,URINE 5.5 (5.0-8.0); PROTEIN URINE 2+ (NEGATIVE); UROBILINOGEN,URINE 0.2 (0.2-1.0)
[2016-04-25 06:20] LABS: BACTERIA,URINE FEW /HPF (None Seen); MUCUS,URINE None Seen /LPF (None Seen); RBC,URINE 0-3 /HPF (0-3); WBC,URINE 0-3 /HPF (0-3)
[2016-04-25 06:47] LABS: BASOPHILS % (AUTO) 0.2 % (0.0-2.0); HEMATOCRIT 26.3 % (36-54); HEMOGLOBIN 8.9 g/dL (14.0-18.0); LYMPHOCYTES # (AUTO) 0.3 K/uL (1.0-5.5); LYMPHOCYTES % (AUTO) 8.6 % (20.5-51.5); MEAN CORPUSCULAR HEMOGLOBIN 29 pg (27-31); MEAN CORPUSCULAR HGB CONC 34 % (32-36); MEAN CORPUSCULAR VOLUME 85 fL (79.0-98.0); MONOCYTES # (AUTO) 0.1 K/uL (0.0-1.0); MONOCYTES % (AUTO) 2.3 % (1.7-9.3); NEUTROPHILS # (AUTO) 3.5 K/uL (1.8-7.7); NEUTROPHILS % (AUTO) 88.9 % (40.0-70.0); PLATELET COUNT (AUTO) 116 K/uL (130-430); RED BLOOD CELL COUNT(AUTO) 3.11 MIL/uL (4.2-6.2); RED CELL DISTRIBUTION WIDTH 13.6 % (9.0-15.0); WHITE BLOOD COUNT (AUTO) 3.9 K/uL (4.8-10.8)
[2016-04-25] MEDS: ACETAMINOPHEN 650 MG SUPP.RECT RC PRN ×3 (06:48→22:34)
[2016-04-25 06:52] LABS: ALBUMIN 2.3 g/dL (3.4-4.8); CALCIUM 7.6 mg/dL (8.4-11.0); CREATININE 0.96 mg/dL (0.55-1.30); PHOSPHORUS 1.8 mg/dL (2.7-4.5); TOTAL BILIRUBIN 0.7 mg/dL (0.0-1.0); TOTAL PROTEIN, SERUM 6.7 g/dL (6.4-8.3)
[2016-04-25] MEDS: FAMOTIDINE PF 20 MG/2 ML VIAL IVP SCH ×2 (08:49→20:37)
[2016-04-25] MEDS: ENOXAPARIN SODIUM 30 MG/0.3 ML SYRINGE SUBCUT SCH (08:50)
[2016-04-25] MEDS: NYSTATIN 15 GM TOPICAL POWDER TP SCH ×2 (08:50→21:12)
[2016-04-25] MEDS: [UNRECOGNIZED DRUG - OTHER] IV SCH ×20 (10:43→19:25)
[2016-04-25] MEDS: FAT EMULSIONS 250 ML IV SCH (12:36)
[2016-04-25 15:02] LABS: INR 1.1 (0.80-1.20); PROTHROMBIN TIME 12.3 SECS (9.5-12.5)
[2016-04-25] MEDS: HYDROmorphone 1 MG INJ. 1 MG/ML AMPUL IVP PRN ×3 (15:12→23:04)
[2016-04-25] MEDS: MICAFUNGIN SODIUM 100 MG in NS 100 ML IV SCH (19:01)
[2016-04-25] MEDS: PIPERACILLIN/TAZO 4.5GM/DEX-IS 100 ML IV SCH (21:13)
[2016-04-25] MEDS: HYDROMORPHONE PCA 10 mg/50 mL IV PRN (22:50)
[2016-04-26 01:09] VITALS: BP_SYST 128
[2016-04-26] MEDS ORDERED: COMMUNICATION ORDER XX ONE (02:30)
[2016-04-26] MEDS ORDERED: D10W 1,000 ML IV SCH (02:30)
[2016-04-26] MEDS: DIPHENHYDRAMINE INJ 50 MG/ML VIAL IVP PRN ×2 (02:57→10:38)
[2016-04-26] MEDS: METOCLOPRAMIDE HCL 10 MG/2 ML VIAL IVP SCH ×4 (03:15→17:45)
[2016-04-26] MEDS: HYDROmorphone 1 MG INJ. 1 MG/ML AMPUL IVP PRN ×5 (03:18→22:08)
[2016-04-26] MEDS: [UNRECOGNIZED DRUG - OTHER] IV SCH ×10 (03:20)
[2016-04-26] MEDS: POTASSIUM CHLORIDE IV SCH ×30 (03:20→22:00)
[2016-04-26] MEDS: SODIUM CHLORIDE IV SCH ×30 (03:20→22:00)
[2016-04-26] MEDS: TPN CENTRAL IV SCH ×10 (03:20)
[2016-04-26 05:07] VITALS: BP_SYST 132
[2016-04-26] MEDS: ONDANSETRON HCL 4 MG/2 ML VIAL IVP PRN ×3 (05:18→22:07)
[2016-04-26] MEDS: NYSTATIN 500,000 UNITS/5 ML UDC PO SCH ×4 (05:55→18:00)
[2016-04-26] MEDS: PIPERACILLIN/TAZO 4.5GM/DEX-IS 100 ML IV SCH ×3 (06:01→22:01)
[2016-04-26 06:41] LABS: CALCIUM 8.1 mg/dL (8.4-11.0); CREATININE 1.19 mg/dL (0.55-1.30); PHOSPHORUS 3.1 mg/dL (2.7-4.5)
[2016-04-26 07:08] LABS: BASOPHILS % (AUTO) 0.3 % (0.0-2.0); HEMATOCRIT 28.1 % (36-54); HEMOGLOBIN 9.4 g/dL (14.0-18.0); LYMPHOCYTES # (AUTO) 0.4 K/uL (1.0-5.5); LYMPHOCYTES % (AUTO) 11.1 % (20.5-51.5); MEAN CORPUSCULAR HEMOGLOBIN 28 pg (27-31); MEAN CORPUSCULAR HGB CONC 34 % (32-36); MEAN CORPUSCULAR VOLUME 85 fL (79.0-98.0); MONOCYTES # (AUTO) 0.2 K/uL (0.0-1.0); MONOCYTES % (AUTO) 6.3 % (1.7-9.3); NEUTROPHILS # (AUTO) 3.1 K/uL (1.8-7.7); NEUTROPHILS % (AUTO) 82.3 % (40.0-70.0); RED BLOOD CELL COUNT(AUTO) 3.32 MIL/uL (4.2-6.2); RED CELL DISTRIBUTION WIDTH 13.9 % (9.0-15.0); WHITE BLOOD COUNT (AUTO) 3.7 K/uL (4.8-10.8)
[2016-04-26] MEDS ORDERED: *PPN PER PHARMACY XX PRN (07:15)
[2016-04-26 07:56] VITALS: BP_SYST 126
[2016-04-26] MEDS: FAMOTIDINE PF 20 MG/2 ML VIAL IVP SCH ×2 (08:57→21:55)
[2016-04-26] MEDS: ENOXAPARIN SODIUM 30 MG/0.3 ML SYRINGE SUBCUT SCH (08:57)
[2016-04-26] MEDS: ACETAMINOPHEN 650 MG SUPP.RECT RC PRN (09:20)
[2016-04-26 09:38] LABS: PLATELET COUNT (AUTO) 78 K/uL (130-430)
[2016-04-26] MEDS: NYSTATIN 15 GM TOPICAL POWDER TP SCH ×2 (09:52→21:56)
[2016-04-26] MEDS: TPN PERIPHERAL IV SCH ×20 (11:46→22:00)
[2016-04-26] MEDS: [UNRECOGNIZED DRUG - OTHER] IV SCH ×20 (11:46→22:00)
[2016-04-26 12:03] VITALS: BP_SYST 96
[2016-04-26 16:33] VITALS: BP_SYST 133
[2016-04-26] MEDS: MICAFUNGIN SODIUM 100 MG in NS 100 ML IV SCH (17:45)
[2016-04-26] MEDS ORDERED: DEXTROSE 50%-WATER 50 ML DISP.SYRIN IVP PRN ×2 (18:30)
[2016-04-26] MEDS ORDERED: GLUCOSE 15 GM GEL (in 37.5 GM TUBE) PO PRN ×2 (18:30)
[2016-04-26 20:00] VITALS: BP_SYST 148
[2016-04-27] MEDS: NYSTATIN 500,000 UNITS/5 ML UDC PO SCH ×5 (00:59→17:26)
[2016-04-27] MEDS: METOCLOPRAMIDE HCL 10 MG/2 ML VIAL IVP SCH ×4 (00:59→17:30)
[2016-04-27] MEDS: INSULIN ASPART 100 UNITS/ML, 10 ML VIAL (NovoLOG) SUBCUT PRN (01:01)
[2016-04-27 04:45] VITALS: BP_SYST 117
[2016-04-27] MEDS: PIPERACILLIN/TAZO 4.5GM/DEX-IS 100 ML IV SCH ×3 (05:37→21:51)
[2016-04-27] MEDS: HYDROmorphone 1 MG INJ. 1 MG/ML AMPUL IVP PRN ×3 (05:38→22:06)
[2016-04-27 06:27] LABS: CALCIUM 8.1 mg/dL (8.4-11.0); CREATININE 0.92 mg/dL (0.55-1.30); POTASSIUM 3.8 mmol/L (3.5-5.1)
[2016-04-27 06:54] LABS: HEMATOCRIT 24.8 % (36-54); HEMOGLOBIN 8.1 g/dL (14.0-18.0); MEAN CORPUSCULAR HEMOGLOBIN 28 pg (27-31); MEAN CORPUSCULAR HGB CONC 33 % (32-36); MEAN CORPUSCULAR VOLUME 85 fL (79.0-98.0); PLATELET COUNT (AUTO) 53 K/uL (130-430); RED BLOOD CELL COUNT(AUTO) 2.92 MIL/uL (4.2-6.2); RED CELL DISTRIBUTION WIDTH 14.2 % (9.0-15.0)
[2016-04-27 07:20] LABS: WHITE BLOOD COUNT (AUTO) 3.4 K/uL (4.8-10.8)
[2016-04-27] MEDS: POTASSIUM CHLORIDE IV SCH ×20 (07:49→17:23)
[2016-04-27] MEDS: [UNRECOGNIZED DRUG - OTHER] IV SCH ×20 (07:49→17:23)
[2016-04-27] MEDS: TPN PERIPHERAL IV SCH ×20 (07:49→17:23)
[2016-04-27] MEDS: SODIUM CHLORIDE IV SCH ×20 (07:49→17:23)
[2016-04-27] MEDS: HYDROMORPHONE PCA 10 mg/50 mL IV PRN (07:51)
[2016-04-27 08:00] VITALS: BP_SYST 111
[2016-04-27] MEDS: ENOXAPARIN SODIUM 30 MG/0.3 ML SYRINGE SUBCUT SCH (08:47)
[2016-04-27] MEDS: FAMOTIDINE PF 20 MG/2 ML VIAL IVP SCH ×2 (08:47→21:51)
[2016-04-27 08:48] LABS: ATYPICAL LYMPHOCYTES % 0 % (0-0); BAND % (MANUAL) 10 % (0-6); LYMPHOCYTES % (MANUAL) 20 % (20-46); MONOCYTES % (MANUAL) 10 % (0-11)
[2016-04-27 08:49] LABS: BASOPHILS % (MANUAL) 0 % (0-2); EOSINOPHILS % (MANUAL) 0 % (0-7)
[2016-04-27] MEDS: NYSTATIN 15 GM TOPICAL POWDER TP SCH ×2 (08:52→21:51)
[2016-04-27 15:54] VITALS: BP_SYST 111
[2016-04-27] MEDS: MICAFUNGIN SODIUM 100 MG in NS 100 ML IV SCH (18:00)
[2016-04-27 19:55] LABS: INR 1.1 (0.80-1.20); PROTHROMBIN TIME 11.5 SECS (9.5-12.5); URIC ACID 1.6 mg/dL (2.4-7.0)
[2016-04-27 20:00] VITALS: BP_SYST 110
[2016-04-28 00:27] VITALS: BP_SYST 117
[2016-04-28] MEDS: POTASSIUM CHLORIDE IV SCH ×30 (02:00→23:12)
[2016-04-28] MEDS: TPN PERIPHERAL IV SCH ×30 (02:00→23:12)
[2016-04-28] MEDS: [UNRECOGNIZED DRUG - OTHER] IV SCH ×30 (02:00→23:12)
[2016-04-28] MEDS: SODIUM CHLORIDE IV SCH ×30 (02:00→23:12)
[2016-04-28] MEDS: HYDROmorphone 1 MG INJ. 1 MG/ML AMPUL IVP PRN ×2 (03:52→13:57)
[2016-04-28] MEDS: ONDANSETRON HCL 4 MG/2 ML VIAL IVP PRN ×2 (03:52→13:54)
[2016-04-28 04:29] VITALS: BP_SYST 128
[2016-04-28] MEDS: NYSTATIN 500,000 UNITS/5 ML UDC PO SCH ×5 (05:51→23:14)
[2016-04-28] MEDS: METOCLOPRAMIDE HCL 10 MG/2 ML VIAL IVP SCH ×5 (05:52→23:15)
[2016-04-28] MEDS: PIPERACILLIN/TAZO 4.5GM/DEX-IS 100 ML IV SCH ×3 (05:52→21:58)
[2016-04-28 06:06] LABS: CALCIUM 7.9 mg/dL (8.4-11.0); CREATININE 0.86 mg/dL (0.55-1.30); POTASSIUM 3.7 mmol/L (3.5-5.1)
[2016-04-28] MEDS: INSULIN ASPART 100 UNITS/ML, 10 ML VIAL (NovoLOG) SUBCUT PRN (06:07)
[2016-04-28 06:11] LABS: BASOPHILS % (AUTO) 0.3 % (0.0-2.0); EOSINOPHILS # (AUTO) 0.1 K/uL (0.0-0.4); EOSINOPHILS % (AUTO) 2.7 % (0.0-4.0); HEMATOCRIT 24.6 % (36-54); LYMPHOCYTES # (AUTO) 0.5 K/uL (1.0-5.5); LYMPHOCYTES % (AUTO) 15.4 % (20.5-51.5); MEAN CORPUSCULAR HEMOGLOBIN 28 pg (27-31); MEAN CORPUSCULAR HGB CONC 33 % (32-36); MEAN CORPUSCULAR VOLUME 85 fL (79.0-98.0); MONOCYTES # (AUTO) 0.3 K/uL (0.0-1.0); MONOCYTES % (AUTO) 9.3 % (1.7-9.3); NEUTROPHILS # (AUTO) 2.6 K/uL (1.8-7.7); NEUTROPHILS % (AUTO) 72.3 % (40.0-70.0); RED BLOOD CELL COUNT(AUTO) 2.89 MIL/uL (4.2-6.2); RED CELL DISTRIBUTION WIDTH 14.2 % (9.0-15.0); WHITE BLOOD COUNT (AUTO) 3.5 K/uL (4.8-10.8)
[2016-04-28 07:31] LABS: HEMOGLOBIN 8.1 g/dL (14.0-18.0); PLATELET COUNT (AUTO) 72 K/uL (130-430)
[2016-04-28 08:00] VITALS: BP_SYST 125
[2016-04-28 08:03] LABS: FIBRINOGEN 570 mg/dL (200-400)
[2016-04-28 08:49] LABS: RETICULOCYTE COUNT 2.4 % (0.5-1.5)
[2016-04-28] MEDS: NYSTATIN 15 GM TOPICAL POWDER TP SCH ×2 (10:19→21:58)
[2016-04-28] MEDS: ENOXAPARIN SODIUM 30 MG/0.3 ML SYRINGE SUBCUT SCH (10:20)
[2016-04-28] MEDS: FAMOTIDINE PF 20 MG/2 ML VIAL IVP SCH ×2 (10:20→21:58)
[2016-04-28 11:47] VITALS: BP_SYST 116
[2016-04-28 15:40] VITALS: BP_SYST 123
[2016-04-28] MEDS: MICAFUNGIN SODIUM 100 MG in NS 100 ML IV SCH (17:57)
[2016-04-28 20:00] VITALS: BP_SYST 124
[2016-04-29 00:10] VITALS: BP_SYST 116
[2016-04-29] MEDS: METOCLOPRAMIDE HCL 10 MG/2 ML VIAL IVP SCH ×3 (06:07→17:57)
[2016-04-29] MEDS: NYSTATIN 500,000 UNITS/5 ML UDC PO SCH ×3 (06:09→17:56)
[2016-04-29] MEDS: PIPERACILLIN/TAZO 4.5GM/DEX-IS 100 ML IV SCH ×3 (06:09→21:52)
[2016-04-29] MEDS ORDERED: COMMUNICATION ORDER XX ONE ×2 (07:30→08:00)
[2016-04-29] MEDS: POTASSIUM CHLORIDE IV SCH ×20 (07:49→21:55)
[2016-04-29] MEDS: SODIUM CHLORIDE IV SCH ×20 (07:49→21:55)
[2016-04-29] MEDS: TPN PERIPHERAL IV SCH ×20 (07:49→21:55)
[2016-04-29] MEDS: [UNRECOGNIZED DRUG - OTHER] IV SCH ×20 (07:49→21:55)
[2016-04-29 08:00] VITALS: BP_SYST 124
[2016-04-29 08:14] LABS: CALCIUM 8.1 mg/dL (8.4-11.0); CREATININE 0.85 mg/dL (0.55-1.30); POTASSIUM 4.3 mmol/L (3.5-5.1)
[2016-04-29] MEDS: D10W 1,000 ML IV SCH (10:15)
[2016-04-29] MEDS: FAMOTIDINE PF 20 MG/2 ML VIAL IVP SCH ×2 (10:52→21:52)
[2016-04-29] MEDS: ENOXAPARIN SODIUM 30 MG/0.3 ML SYRINGE SUBCUT SCH (10:52)
[2016-04-29] MEDS: NYSTATIN 15 GM TOPICAL POWDER TP SCH ×2 (10:53→21:52)
[2016-04-29 12:32] VITALS: BP_SYST 125
[2016-04-29] MEDS: HYDROMORPHONE PCA 10 mg/50 mL IV PRN (13:15)
[2016-04-29 16:56] VITALS: BP_SYST 147
[2016-04-29] MEDS: MICAFUNGIN SODIUM 100 MG in NS 100 ML IV SCH (17:56)
[2016-04-30] MEDS: METOCLOPRAMIDE HCL 10 MG/2 ML VIAL IVP SCH ×4 (00:17→17:33)
[2016-04-30] MEDS: NYSTATIN 500,000 UNITS/5 ML UDC PO SCH ×4 (00:17→17:33)
[2016-04-30] MEDS: D10W 1,000 ML IV SCH ×2 (00:23→12:04)
[2016-04-30] MEDS: PIPERACILLIN/TAZO 4.5GM/DEX-IS 100 ML IV SCH ×3 (06:01→22:19)
[2016-04-30] MEDS: POTASSIUM CHLORIDE IV SCH ×20 (06:01→15:32)
[2016-04-30] MEDS: [UNRECOGNIZED DRUG - OTHER] IV SCH ×20 (06:01→15:32)
[2016-04-30] MEDS: SODIUM CHLORIDE IV SCH ×20 (06:01→15:32)
[2016-04-30] MEDS: TPN PERIPHERAL IV SCH ×20 (06:01→15:32)
[2016-04-30] MEDS: NYSTATIN 15 GM TOPICAL POWDER TP SCH ×2 (06:02→21:00)
[2016-04-30 06:04] VITALS: BP_SYST 117
[2016-04-30 06:53] LABS: BASOPHILS % (AUTO) 0.4 % (0.0-2.0); EOSINOPHILS # (AUTO) 0.1 K/uL (0.0-0.4); EOSINOPHILS % (AUTO) 2.7 % (0.0-4.0); HEMATOCRIT 24.6 % (36-54); HEMOGLOBIN 8.1 g/dL (14.0-18.0); LYMPHOCYTES # (AUTO) 0.7 K/uL (1.0-5.5); MEAN CORPUSCULAR HEMOGLOBIN 28 pg (27-31); MEAN CORPUSCULAR HGB CONC 33 % (32-36); MEAN CORPUSCULAR VOLUME 86 fL (79.0-98.0); MONOCYTES # (AUTO) 0.5 K/uL (0.0-1.0); MONOCYTES % (AUTO) 9.2 % (1.7-9.3); NEUTROPHILS # (AUTO) 3.6 K/uL (1.8-7.7); NEUTROPHILS % (AUTO) 72.7 % (40.0-70.0); PLATELET COUNT (AUTO) 158 K/uL (130-430); RED BLOOD CELL COUNT(AUTO) 2.88 MIL/uL (4.2-6.2); WHITE BLOOD COUNT (AUTO) 4.9 K/uL (4.8-10.8)
[2016-04-30 08:39] VITALS: BP_SYST 129
[2016-04-30] MEDS: FAMOTIDINE PF 20 MG/2 ML VIAL IVP SCH ×2 (08:45→20:59)
[2016-04-30] MEDS: ENOXAPARIN SODIUM 30 MG/0.3 ML SYRINGE SUBCUT SCH (08:45)
[2016-04-30] MEDS: HYDROMORPHONE PCA 10 mg/50 mL IV PRN (10:36)
[2016-04-30] MEDS: MICAFUNGIN SODIUM 100 MG in NS 100 ML IV SCH (12:04)
[2016-04-30 12:49] VITALS: BP_SYST 122
[2016-04-30 17:37] VITALS: BP_SYST 133
[2016-04-30] MEDS ORDERED: IOHEXOL 100 ML IV ONE (20:09)
[2016-05-01] VITALS (7 sets, daily range): BP systolic 101–152
[2016-05-01] MEDS: METOCLOPRAMIDE HCL 10 MG/2 ML VIAL IVP SCH ×4 (00:27→17:32)
[2016-05-01] MEDS: NYSTATIN 500,000 UNITS/5 ML UDC PO SCH ×4 (00:28→17:32)
[2016-05-01] MEDS: TPN PERIPHERAL IV SCH ×20 (02:10→11:32)
[2016-05-01] MEDS: SODIUM CHLORIDE IV SCH ×20 (02:10→11:32)
[2016-05-01] MEDS: POTASSIUM CHLORIDE IV SCH ×20 (02:10→11:32)
[2016-05-01] MEDS: [UNRECOGNIZED DRUG - OTHER] IV SCH ×20 (02:10→11:32)
[2016-05-01] MEDS: HYDROMORPHONE PCA 10 mg/50 mL IV PRN (03:31)
[2016-05-01] MEDS: D10W 1,000 ML IV SCH (03:33)
[2016-05-01 04:06] LABS: HEPATITIS B SURFACE AG Negative (Negative); HEPATITIS C VIRUS AB <0.1 s/co ratio (0.0-0.9)
[2016-05-01] MEDS: PIPERACILLIN/TAZO 4.5GM/DEX-IS 100 ML IV SCH ×2 (06:45→15:35)
[2016-05-01 07:31] LABS: BASOPHILS % (AUTO) 0.4 % (0.0-2.0); EOSINOPHILS # (AUTO) 0.1 K/uL (0.0-0.4); EOSINOPHILS % (AUTO) 1.8 % (0.0-4.0); HEMATOCRIT 23.9 % (36-54); HEMOGLOBIN 8.2 g/dL (14.0-18.0); LYMPHOCYTES # (AUTO) 0.8 K/uL (1.0-5.5); LYMPHOCYTES % (AUTO) 15.4 % (20.5-51.5); MEAN CORPUSCULAR HEMOGLOBIN 28 pg (27-31); MEAN CORPUSCULAR HGB CONC 34 % (32-36); MEAN CORPUSCULAR VOLUME 82 fL (79.0-98.0); MONOCYTES # (AUTO) 0.5 K/uL (0.0-1.0); MONOCYTES % (AUTO) 10.4 % (1.7-9.3); NEUTROPHILS # (AUTO) 3.5 K/uL (1.8-7.7); PLATELET COUNT (AUTO) 221 K/uL (130-430); RED BLOOD CELL COUNT(AUTO) 2.93 MIL/uL (4.2-6.2); RED CELL DISTRIBUTION WIDTH 14.8 % (9.0-15.0); WHITE BLOOD COUNT (AUTO) 4.9 K/uL (4.8-10.8)
[2016-05-01 07:44] LABS: CALCIUM 8.2 mg/dL (8.4-11.0); CREATININE 0.84 mg/dL (0.55-1.30); POTASSIUM 4.2 mmol/L (3.5-5.1); TOTAL BILIRUBIN 0.7 mg/dL (0.0-1.0); TOTAL PROTEIN, SERUM 6.4 g/dL (6.4-8.3)
[2016-05-01] MEDS: FAMOTIDINE PF 20 MG/2 ML VIAL IVP SCH ×2 (09:30→20:25)
[2016-05-01] MEDS: ENOXAPARIN SODIUM 30 MG/0.3 ML SYRINGE SUBCUT SCH (09:31)
[2016-05-01] MEDS: NYSTATIN 15 GM TOPICAL POWDER TP SCH ×2 (09:32→20:27)
[2016-05-01] MEDS ORDERED: D5W 1,000 ML IV SCH (12:15)
[2016-05-01] MEDS ORDERED: HYDROmorphone 2 MG/ML VIAL IVP ONE (12:15)
[2016-05-01] MEDS: MICAFUNGIN SODIUM 100 MG in NS 100 ML IV SCH (13:59)
[2016-05-01] MEDS ORDERED: HYDROmorphone 1 MG INJ. 1 MG/ML AMPUL IVP ONE (22:30)
[2016-05-01] MEDS: ONDANSETRON HCL 4 MG/2 ML VIAL IVP PRN (23:08)
[2016-05-02 00:31] VITALS: BP_SYST 146
[2016-05-02] MEDS ORDERED: HYDROmorphone 2 MG/ML VIAL ONE (00:36)
== END 2016-05-02 00:50 | disposition short-term general hospital (02) | DRG 329 ==
LOC: SED 21:17 → SMU 03-29 00:36 → STU 04-19 14:42 → SMU 05-01 11:16 → STU 05-01 11:34
PROVIDERS: ADMIT Internal Medicine; ATTEND Internal Medicine
PROC: 0DTF4ZZ Resection of Right Large Intestine, Percutaneous Endoscopic Approach (ICD-10-PCS; 2016-03-29)
PROC: 02HV33Z Insertion of Infusion Device into Superior Vena Cava, Percutaneous Approach (ICD-10-PCS; 2016-03-29)
PROC: B548ZZA Ultrasonography of Superior Vena Cava, Guidance (ICD-10-PCS; 2016-03-29)
PROC: 0W9J3ZZ Drainage of Pelvic Cavity, Percutaneous Approach (ICD-10-PCS; 2016-03-29)
PROC: 0DTJ4ZZ Resection of Appendix, Percutaneous Endoscopic Approach (ICD-10-PCS; principal; 2016-03-29 01:30)
PROC: 3E0436Z Introduction of Nutritional Substance into Central Vein, Percutaneous Approach (ICD-10-PCS; 2016-04-24)
DX: K35.3 Acute appendicitis with localized peritonitis (principal); J15.5 Pneumonia due to Escherichia coli; A41.81 Sepsis due to Enterococcus; D61.818 Other pancytopenia; Z68.41 Body mass index [BMI] 40.0-44.9, adult; N39.0 Urinary tract infection, site not specified; K63.2 Fistula of intestine; T80.211A Bloodstream infection due to central venous catheter, initial encounter; Z87.891 Personal history of nicotine dependence; E66.01 Morbid (severe) obesity due to excess calories; Z79.2 Long term (current) use of antibiotics; M19.90 Unspecified osteoarthritis, unspecified site
CPT/HCPCS: 36415; 71010; 71020-TC; 76770; 80048; 80053; 81000-TC; 82962; 83010; 83605; 83615-TC; 83690-TC; 83735-TC; 84100-TC; 84478-TC; 84550-TC; 85007; 85018-TC; 85025; 85027; 85044-TC; 85379; 85384-TC; 85610-TC; 85730-TC; 86022; 86706; 86803; 86886; 86900; 86901; 86920; 87040-TC; 87070-TC; 87075-TC; 87081; 87086; 87186-TC; 87205-TC; 87230-TC; 87340; 88307; 93005; 94010; 94760; 96360; 96361; 96375; 96376; 97116-GP; 97530-GP; 99285; C1727; C1729; C1751; C1769; J0295; J1170; J1200; J1650; J1815; J1885; J1940; J2001; J2248; J2250; J2270; J2405; J2543; J2704; J2765; J3010; J3475; J3480; J3490; J7030; J7040; J7042; J7050; J7060; J7120; J7131; Q9964; Q9967

== ENCOUNTER 2017-05-06 07:10 | Day surgery (SDC) | payer OTHER ==
[~2017-05-06] VITALS: Ht 198.1 cm; Wt 170.1 kg
[~2017-05-06 07:10] MED LIST: TYC3 PO
[2017-05-06] MEDS ORDERED: SIMETHICONE 40 MG/0.6 ML ML ONE (07:27)
[2017-05-06] MEDS ORDERED: MEPERIDINE HCL/PF 100 MG/ML AMP ONE (08:15)
[2017-05-06] MEDS: MIDAZOLAM HCL 5 MG/5 ML VIAL ONE ×4 (08:40→08:47)
[2017-05-06 09:47] VITALS: BP_SYST 126
== END 2017-05-06 22:42 | disposition home or self-care (01) ==
LOC: SDS 07:10 → SMU 07:10 → SDS 22:42
PROVIDERS: ATTEND Colon & Rectal Surgery
PROC: 0DBN8ZX Excision of Sigmoid Colon, Via Natural or Artificial Opening Endoscopic, Diagnostic (ICD-10-PCS; principal; 2017-05-06 08:45)
DX: Z12.11 Encounter for screening for malignant neoplasm of colon (principal); D12.5 Benign neoplasm of sigmoid colon; K57.30 Diverticulosis of large intestine without perforation or abscess without bleeding; K63.89 Other specified diseases of intestine; I10 Essential (primary) hypertension; K46.9 Unspecified abdominal hernia without obstruction or gangrene; R73.01 Impaired fasting glucose; L72.3 Sebaceous cyst; L08.9 Local infection of the skin and subcutaneous tissue, unspecified; M25.569 Pain in unspecified knee; E66.9 Obesity, unspecified; Z68.41 Body mass index [BMI] 40.0-44.9, adult; M17.10 Unilateral primary osteoarthritis, unspecified knee; G47.9 Sleep disorder, unspecified
CPT/HCPCS: 45380; 88305; J2175; J2250; J7030

== ENCOUNTER 2017-08-12 07:33 | Inpatient (IN) | payer OTHER ==
[~2017-08-12] VITALS: Ht 198.1 cm; Wt 174.6 kg
[2017-08-12] MEDS ORDERED: CEFAZOLIN SOD 1 GM/ ISO 50 ML PREMIX IV ONE (07:45)
[2017-08-12] MEDS ORDERED: LISI-217 PO (09:56)
[2017-08-12] MEDS ORDERED: POLYMYXIN 500,000/BACIT.10,000 UNITS in NS IRR 1 L IR ONE (11:57)
[2017-08-12] MEDS ORDERED: GLYCOPYRROLATE 0.2 MG/ML VIAL IJ ONE (12:05)
[2017-08-12] MEDS ORDERED: MIDAZOLAM HCL 5 MG/5 ML VIAL IVP ONE (12:05)
[2017-08-12] MEDS ORDERED: BUPIVACAINE LIPOSOME/PF 266 MG/20 ML VIAL INFIL ONE (12:05)
[2017-08-12] MEDS ORDERED: PROPOFOL 200MG/ 20ML VIAL (DIPRIVAN) IV ONE (12:05)
[2017-08-12] MEDS ORDERED: SEVOFLURANE 15 MIN GAS INH ONE (12:05)
[2017-08-12] MEDS ORDERED: NEOSTIGMINE METHYLSULFATE 1 MG/ML, 10 ML VIAL IVP ONE (12:05)
[2017-08-12] MEDS ORDERED: ONDANSETRON HCL 4 MG/2 ML VIAL IVP ONE (12:05)
[2017-08-12] MEDS ORDERED: LR 1,000 ML IV.SOLN IV ONE (12:05)
[2017-08-12] MEDS ORDERED: ROCURONIUM BROMIDE 10 MG/ML (ZEMURON) IV ONE (12:05)
[2017-08-12] MEDS ORDERED: NS 100 ML BAG IV ONE (12:05)
[2017-08-12] MEDS ORDERED: fentaNYL CITRATE 250 MCG/5 ML AMP IV ONE (12:05)
[2017-08-12] MEDS ORDERED: LR 1,000 ML IV SCH (12:57)
[2017-08-12] MEDS ORDERED: METOCLOPRAMIDE HCL 10 MG/2 ML VIAL IVP PRN (13:00)
[2017-08-12] MEDS ORDERED: HYDROmorphone 1 MG INJ. 1 MG/ML AMPUL IVP PRN ×2 (13:00)
[2017-08-12] MEDS ORDERED: HYDROmorphone 2 MG/ML VIAL IVP PRN (13:00)
[2017-08-12] MEDS ORDERED: ONDANSETRON HCL 4 MG/2 ML VIAL IVP PRN (14:00)
[2017-08-12] MEDS ORDERED: ACETAMINOPHEN 325 MG TABLET PO PRN (14:00)
[2017-08-12] MEDS ORDERED: HYDROcodone/ACETAMIN 5-325 MG TAB (NORCO/ VICODIN) PO PRN (14:00)
[2017-08-12] MEDS ORDERED: HYDROmorphone 2 MG/ML VIAL ONE (14:33)
[2017-08-12 15:00] VITALS: BP_SYST 126
[2017-08-12 15:05] VITALS: BP_SYST 126
[2017-08-12] MEDS: D5/0.45 NS 1,000 ML IV SCH (16:12)
[2017-08-12] MEDS: CEFAZOLIN 1 GM IVPB PREMIX 50 ML IV SCH ×2 (16:13→21:06)
[2017-08-12] MEDS: HYDROmorphone 1 MG INJ. 1 MG/ML AMPUL IVP PRN ×2 (16:39→21:09)
[2017-08-12] MEDS: HYDROcodone/ACETAMIN 5-325 MG TAB (NORCO/ VICODIN) PO PRN (19:44)
[2017-08-12 20:15] VITALS: BP_SYST 139
[2017-08-12] MEDS: FAMOTIDINE PF 20 MG/2 ML VIAL IVP SCH (21:06)
[2017-08-12 23:20] VITALS: BP_SYST 140
[2017-08-13] MEDS: HYDROmorphone 1 MG INJ. 1 MG/ML AMPUL IVP PRN ×3 (00:53→15:40)
[2017-08-13] MEDS: HYDROcodone/ACETAMIN 5-325 MG TAB (NORCO/ VICODIN) PO PRN ×2 (01:36→11:56)
[2017-08-13] MEDS: D5/0.45 NS 1,000 ML IV SCH ×2 (01:37→11:51)
[2017-08-13] MEDS ORDERED: HYDROcodone/ACETAMIN 5-325 MG TAB (NORCO/ VICODIN) ONE ×2 (03:37→06:19)
[2017-08-13] MEDS ORDERED: HYDROmorphone 1 MG INJ. 1 MG/ML AMPUL ONE (05:10)
[2017-08-13 08:18] VITALS: BP_SYST 128
[2017-08-13] MEDS ORDERED: ENOXAPARIN SODIUM 30 MG/0.3 ML SYRINGE SUBCUT SCH (09:00)
[2017-08-13] MEDS: FAMOTIDINE PF 20 MG/2 ML VIAL IVP SCH (09:31)
[2017-08-13 13:16] VITALS: BP_SYST 127
[2017-08-13 15:13] VITALS: BP_SYST 135
[2017-08-13] MEDS ORDERED: HYDR-1189 PO (15:55)
[2017-08-13 16:40] VITALS: BP_SYST 135
== END 2017-08-13 16:10 | disposition home or self-care (01) | DRG 354 ==
LOC: SMU 07:33
PROVIDERS: ADMIT Colon & Rectal Surgery; ATTEND Colon & Rectal Surgery
PROC: 0WUF0JZ Supplement Abdominal Wall with Synthetic Substitute, Open Approach (ICD-10-PCS; principal; 2017-08-12 11:00)
DX: K43.0 Incisional hernia with obstruction, without gangrene (principal); Z68.41 Body mass index [BMI] 40.0-44.9, adult; I10 Essential (primary) hypertension; R73.01 Impaired fasting glucose; M17.10 Unilateral primary osteoarthritis, unspecified knee; E66.01 Morbid (severe) obesity due to excess calories; Z90.49 Acquired absence of other specified parts of digestive tract; Z79.899 Other long term (current) drug therapy
CPT/HCPCS: 87081; 88302; C1781; C9290; J0690; J1170; J1650; J2250; J2405; J2704; J2710; J3010; J3490; J7120